=== PATIENT | male | born 1960 | race Caucasian/White ===

== ENCOUNTER 2019-07-25 16:30 | Outpatient (RCR) | payer BC, SELFPAY ==
--- NOTE | 2019-06-20 14:20 | PT.OIE ---
Current Diagnoses Pain in left shoulder (06/20/19) Cervicalgia (06/20/19) Strain of unspecified muscles, fascia and tendons at forearm level, unspecified arm, initial encounter (06/20/19) Past Medical History (Last Updated 06/01/19 @ 15:19 by Huber Agrawal DO) Cervical somatic dysfunction (Acute) Chronic left shoulder pain (Acute) Colon polyp (Acute ~2018) Hearing loss (Acute ~1989) Kidney stones (Acute ~2012) Migraine (Acute ~1998) Segmental and somatic dysfunction of abdomen and other regions (Acute) Shoulder pain (Acute ~1999) Tension headache (Acute) Upper extremity somatic dysfunction (Acute) Past Surgical History (Last Updated 02/28/19 @ 13:59 by Lizbeth Caputo CMA) Thumb fracture (Acute ~1980) Visit Care Team Role Provider Type Huber Agrawal DO Family Provider Physician Primary Care Provider Specialty: Family Practice Address: [address] [place] [address] Email: Rachel Garcia MD Attending Provider Physician Specialty: Internal Medicine Address: [address] [place] [address] Email: Physical Therapy Initial Evaluation PT-OP-A Visit Information Start: 06/20/19 12:46 Freq: Status: Active Protocol: Document 06/20/19 13:00 (Rec: 06/20/19 14:20 [email or web address]) Out-Patient Physical Therapy Visit Information Visit Information Visit Type Initial Evaluation Visit Start Time 13:00 Visit Stop Time 13:40 Total Visit Minutes 40 Visit Number 1 Evaluation Information Evaluation Date 06/20/19 PT-OP-B Current Condition Start: 06/20/19 12:46 Freq: Status: Active Protocol: Document 06/20/19 13:00 HH (Rec: 06/20/19 14:20 [email or web address]) Current Condition History of Current Condition Onset Date 10 years ago Current Complaints Chronic L neck pain, L shoulder pain and tension headache on L side History of Current Condition Pt is a 58 yo male with primary c/o chronic L neck pain, L shoulder pain and tension headache on L side for 10 years. He describes the neck pain as a spasm that starts in the trapezius and goes up, the pain ragnes nothing to 4-6/10. His tension headache starts from L suboccipital area up to his back of L eye. Pt has had CT scan with -ve findings except trapezius strain. His symptoms tend to get worse over work/ stress and keeping his head at one position (eg. staring at his computer on his L side for long period of work). His pain also significantly affects his sleep which wakes him >3times from a 8-9 hrs sleep. He stated his symptoms tend to better with ex such as chest fly from the gym. Receiving massage from his tends to relieve his symptoms temporarily but doesnt last. Pt was prescribed with Barclofen (once a day before sleep) since last summer 2018 and it has been helpful to improve his sleep quality. Pt never had Pt before to address this problem . 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 Prior Treatments and Tests CT scan with -ve findings except trapezius strain Treatment Goals Patient/Caregiver Goals 1. To be pain free of his L shoulder and neck for daily activities 2. to be able to sleep full 8 hrs without barclofen Prior Functional Status Baseline Function- ADL's Independent Baseline Function- Mobility Independent Current Functional Impairments (Reported) Functional Limitations- Work/School Increased neck and shoulder discomfort during work. ( unabel to tolerate prolonged sitting and stare at his screen on L side) PT-OP-C Subjective Start: 06/20/19 12:46 Freq: Status: Active Protocol: Document 06/20/19 13:00 (Rec: 06/20/19 14:20 [email or web address]) OP-PT Subjective Patient Comments Patient Comments Its been 10 years and i really need to fix it Patient Questionnaires Quick Dash- Upper Extremity Quick Dash UE Score 27.27 Quick Dash UE Impairment 20 to 39% Impaired (Score 20- 39) OP-PT Pain Assessment Location L trap/ levator Intensity 4 Scale Used Numeric (1 - 10) Description Aching,Dull,Pressure Frequency Frequent Pain Aggravating Factors Position,Exercise Pain Alleviating Factors Exercise Left Neck Intensity 4 Scale Used Numeric (1 - 10) Description Aching,Dull,Pressure Frequency Frequent Pain Aggravating Factors Position,Sitting Pain Alleviating Factors Exercise PT-OP-E Functional Tests Start: 06/20/19 12:46 Freq: Status: Active Protocol: Document 06/20/19 13:00 (Rec: 06/20/19 14:20 [email or web address]) Functional Tests Apley's Scratch Test Action 2- Left T2 Action 2- Right T4 Action 3- Left T8 Action 3- Right T8 PT-OP-F Manual Assessment Start: 06/20/19 12:46 Freq: Status: Active Protocol: Document 06/20/19 13:00 (Rec: 06/20/19 14:20 [email or web address]) Manual Assessments Soft Tissue Assessment Soft Tissue Mobility Assessment Significant tenderness to pressure at L infraspinatus, levator scap, L trap Joint Mobility Assessment Joint Mobility Assessment Hypomobility from T1-T6 with significant pain to PA pressure Pressure at T1-T4 produced radiating pain L trap PT-OP-J Posture/Palpation/Skin Start: 06/20/19 12:46 Freq: Status: Active Protocol: Document 06/20/19 13:00 (Rec: 06/20/19 14:20 [email or web address]) Posture Evaluation Position Standing Head/C-Spine Posture Forward Head T-Spine Posture Increased Kyphosis Shoulder Posture (L) Rounded,(R) Rounded PT-OP-K Range of Motion Start: 06/20/19 12:46 Freq: Status: Active Protocol: Document 06/20/19 13:00 (Rec: 06/20/19 14:20 [email or web address]) Cervical Spine Range of Motion Cervical Spine Active Degrees Testing Position Sitting Flexion 55 Extension 45 Rotation Left 55 Rotation Right 50 Lateral Flexion Left 35 Lateral Flexion Right 55 ROM Limitations Soft Tissue Tightness,Pain Comments pulling pain with R SB with OP pain with end range ext with OP Shoulder Goniometric Range of Motion Shoulder Right Active Shoulder ROM WFL Yes Testing Position Standing Left Active Shoulder ROM WFL Yes Testing Position Standing Shoulder ROM Limitations Shoulder ROM Limitations Pain Comments Discomfort noted at anterior aspect of L GH during end range L ER PT-OP-L Special Tests Start: 06/20/19 12:46 Freq: Status: Active Protocol: Document 06/20/19 13:00 (Rec: 06/20/19 14:20 [email or web address]) Special Tests Cervical Spine Special Tests facet joint test Test Results +ve on L Comments pain with ext/ ext+ L rot Spurling's Test Test Results +ve Comments radiating pain to L trap Foraminal Compression Test Results -ve Shoulder Special Tests Belly Press Test Results -ve Mercado Aurelio Impingement Test Results -ve Neer Impingement Test Results -ve AC Joint Compression Test Results -ve Empty Can Test Results -ve PT-OP-M Strength Start: 06/20/19 12:46 Freq: Status: Active Protocol: Document 06/20/19 13:00 (Rec: 06/20/19 14:20 [email or web address]) Shoulder Strength Shoulder Manual Muscle Testing Right Flexion 4+ Good+ Extension 4+ Good+ Abduction (C5) 4+ Good+ Adduction 4+ Good+ External Rotation 4+ Good+ Internal Rotation 4+ Good+ Left Flexion 4+ Good+ Extension 4+ Good+ Abduction (C5) 4+ Good+ Adduction 4+ Good+ External Rotation 4 Good Internal Rotation 4 Good PT-OP-Q Treatments Start: 06/20/19 12:46 Freq: Status: Active Protocol: Document 06/20/19 13:00 (Rec: 06/20/19 14:20 [email or web address]) Self-Care/Home Management Treatment Education Patient Education Body Mechanics,Joint Protection,Pain Management, Posture Other Education explained improving T-spine extension mobility to reduce joint stress at C/S Movement education to improve extension ability of C/s and T /S PT-OP-T Assessment and Plan Start: 06/20/19 12:46 Freq: Status: Active Protocol: Document 06/20/19 13:00 (Rec: 06/20/19 14:20 [email or web address]) Physical Therapy Assessment Rehab Potential Rehabilitation Potential Excellent Evaluation Complexity Number of Personal Factors/Comorbidities 1-2 Number of Body Systems Impaired 1-2 Clinical Presentation at Evaluation Stable Impairments Impairments Functional Activities, Functional Mobility,Pain, Posture,ROM,Sensation,Soft Tissue Mobility,Strength Goals pain Impairment Pt has pain during cervical ext and ext with L rot Fpc Goal (LTG) Pt will be pain for cervical closed pack position so pt could look overhead without discomfort. 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 LTG Duration 8 weeks Sleep Impairment pt unable to maintain 8 hrs sleep without barclofen d/t pain Short Term Goal (STG) Pt will be able to sleep >5 hours without disruption by pain and taking barclofen. STG Duration 4 weeks Steward/Stewardess Tourist Class Goal (LTG) Pt will be able to sleep >8 hours without disruption by pain and taking barclofen. LTG Duration 8 weeks Quick dash Impairment pt scores 27.27 on quick dash Short Term Goal (STG) Pt will score <20 (1-19 % impairment) on quick dash to improve his quality of life STG Duration 4 weeks Fpc Goal (LTG) Pt will score <10 (1-19 % impairment) on quick dash to improve his quality of life so he could work a 8 hr day without discomfort. LTG Duration 8 weeks Assessment Summary Assessment Pt is a 58 yo male with primary c/o chronic L neck pain, L shoulder pain and tension headache on L side for 10 years. Upon assessment, pt 's L neck and shoulder pain reproduced with closed pack position (ext/ ext+L rot) and PA pressure at T1-T4. There;s noticeable angulation during at C6-7 during C/S rotation/ extension which possibly increase nerve root pressure. Significant hypomobility at T1 -T8 also noted. However, there 's not significant strength / ROM loss on L GH and C/S. Pt will benefit from skilled therapy to improve his thoracic rotational and extension mobility, scap strength, stability of scapulas and c/s in order for him to improve his sleep and work performance. Physical Therapy Plan Frequency and Duration Frequency of Treatment 2x/Week Duration of Treatment 8 weeks Plan of Care Start Date 06/20/19 Plan of Care End Date 08/19/19 Therapeutic Interventions Therapeutic Interventions Home Exercise Program,Joint Mobilizations,Manual Therapy, Neuromuscular Re-education, Patient/Caregiver Education, Self-Care/Home Management,Soft Tissue Mobilization,Taping, Therapeutic Activities, Therapeutic Exercises Modalities Cold Pack/Ice Massage,Electric Stimulation,Hot Packs, Infrared Therapy,Iontophoresis ,Traction- Mechanical, Ultrasound Next Visit Focus/Plan Next Note Type Treatment Note Next Visit Plan STM on infraspinatus, levator, trap T/S extension and rotation mobility cervical deep flexors strengthening scap row.
--- NOTE | 2019-06-20 14:20 | PT.OPPOC ---
Physical, Occupational & Speech Therapy At [facility] Current Diagnoses Pain in left shoulder (06/20/19) Cervicalgia (06/20/19) Strain of unspecified muscles, fascia and tendons at forearm level, unspecified arm, initial encounter (06/20/19) Visit Care Team Role Provider Type Huber Agrawal DO Family Provider Physician Primary Care Provider Specialty: Family Practice Address: [address] [place] [address], [id number] Email: Rachel Garcia MD Attending Provider Physician Specialty: Internal Medicine Address: [address] [place] [address], [id number] Email: Plan Of Care PT-OP-T Assessment and Plan Start: 06/20/19 12:46 Freq: Status: Active Protocol: Document 06/20/19 13:00 (Rec: 06/20/19 14:20 [email or web address]) Physical Therapy Assessment Rehab Potential Rehabilitation Potential Excellent Evaluation Complexity Number of Personal Factors/Comorbidities 1-2 Number of Body Systems Impaired 1-2 Clinical Presentation at Evaluation Stable Impairments Impairments Functional Activities, Functional Mobility,Pain, Posture,ROM,Sensation,Soft Tissue Mobility,Strength Goals pain Impairment Pt has pain during cervical ext and ext with L rot Shoe Cleaner Goal (LTG) Pt will be pain for cervical closed pack position so pt could look overhead without discomfort. 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 LTG Duration 8 weeks Sleep Impairment pt unable to maintain 8 hrs sleep without barclofen d/t pain Short Term Goal (STG) Pt will be able to sleep >5 hours without disruption by pain and taking barclofen. STG Duration 4 weeks Fdc Goal (LTG) Pt will be able to sleep >8 hours without disruption by pain and taking barclofen. LTG Duration 8 weeks Quick dash Impairment pt scores 27.27 on quick dash Short Term Goal (STG) Pt will score <20 (1-19 % impairment) on quick dash to improve his quality of life STG Duration 4 weeks Shoe Cleaner Goal (LTG) Pt will score <10 (1-19 % impairment) on quick dash to improve his quality of life so he could work a 8 hr day without discomfort. LTG Duration 8 weeks Assessment Summary Assessment Pt is a 58 yo male with primary c/o chronic L neck pain, L shoulder pain and tension headache on L side for 10 years. Upon assessment, pt 's L neck and shoulder pain reproduced with closed pack position (ext/ ext+L rot) and PA pressure at T1-T4. There;s noticeable angulation during at C6-7 during C/S rotation/ extension which possibly increase nerve root pressure. Significant hypomobility at T1 -T8 also noted. However, there 's not significant strength / ROM loss on L GH and C/S. Pt will benefit from skilled therapy to improve his thoracic rotational and extension mobility, scap strength, stability of scapulas and c/s in order for him to improve his sleep and work performance. Physical Therapy Plan Frequency and Duration Frequency of Treatment 2x/Week Duration of Treatment 8 weeks Plan of Care Start Date 06/20/19 Plan of Care End Date 08/19/19 Therapeutic Interventions Therapeutic Interventions Home Exercise Program,Joint Mobilizations,Manual Therapy, Neuromuscular Re-education, Patient/Caregiver Education, Self-Care/Home Management,Soft Tissue Mobilization,Taping, Therapeutic Activities, Therapeutic Exercises Modalities Cold Pack/Ice Massage,Electric Stimulation,Hot Packs, Infrared Therapy,Iontophoresis ,Traction- Mechanical, Ultrasound Next Visit Focus/Plan Next Note Type Treatment Note Next Visit Plan STM on infraspinatus, levator, trap T/S extension and rotation mobility cervical deep flexors strengthening scap row. Plan of Care Dates Plan of Care Start Date 06/20/19 Plan of Care End Date 08/19/19 Electronically Signed by: Leonardo Wolff, TRINITY 06/20/19 0295 Please Sign and Return: I have reviewed this Plan of Care and certify that the skilled therapy services above are required to meet the patient?s needs. Physician Signature Date Printed Name and Credentials Clinical Instructor Signature Printed Name and Credentials
--- NOTE | 2019-06-23 15:19 | PT.OTN ---
Current Diagnoses Pain in left shoulder (06/23/19) Cervicalgia (06/23/19) Strain of unspecified muscles, fascia and tendons at forearm level, unspecified arm, initial encounter (06/23/19) Physical Therapy Treatment Note PT-OP-A Visit Information Start: 06/20/19 12:46 Freq: Status: Active Protocol: Document 06/20/19 13:00 HH (Rec: 06/20/19 14:20 HH [email or web address]) Out-Patient Physical Therapy Visit Information Visit Information Visit Type Initial Evaluation Visit Start Time 13:00 Visit Stop Time 13:40 Total Visit Minutes 40 Visit Number 1 Evaluation Information Evaluation Date 06/20/19 PT-OP-B Current Condition Start: 06/20/19 12:46 Freq: Status: Active Protocol: Document 06/20/19 13:00 HH (Rec: 06/20/19 14:20 HH [email or web address]) Current Condition History of Current Condition Onset Date 10 years ago Current Complaints Chronic L neck pain, L shoulder pain and tension headache on L side History of Current Condition Pt is a 58 yo male with primary c/o chronic L neck pain, L shoulder pain and tension headache on L side for 10 years. He describes the neck pain as a spasm that starts in the trapezius and goes up, the pain ragnes nothing to 4-6/10. His tension headache starts from L suboccipital area up to his back of L eye. Pt has had CT scan with -ve findings except trapezius strain. His symptoms tend to get worse over work/ stress and keeping his head at one position (eg. staring at his computer on his L side for long period of work). His pain also significantly affects his sleep which wakes him >3times from a 8-9 hrs sleep. He stated his symptoms tend to better with ex such as chest fly from the gym. Receiving massage from his tends to relieve his symptoms temporarily but doesnt last. Pt was prescribed with Barclofen (once a day before sleep) since last summer 2018 and it has been helpful to improve his sleep quality. Pt never had Pt before to address this problem . 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 Prior Treatments and Tests CT scan with -ve findings except trapezius strain Treatment Goals Patient/Caregiver Goals 1. To be pain free of his L shoulder and neck for daily activities 2. to be able to sleep full 8 hrs without barclofen Prior Functional Status Baseline Function- ADL's Independent Baseline Function- Mobility Independent Current Functional Impairments (Reported) Functional Limitations- Work/School Increased neck and shoulder discomfort during work. ( unabel to tolerate prolonged sitting and stare at his screen on L side) PT-OP-C Subjective Start: 06/20/19 12:46 Freq: Status: Active Protocol: Document 06/20/19 13:00 HH (Rec: 06/20/19 14:20 [email or web address]) OP-PT Subjective Patient Comments Patient Comments Its been 10 years and i really need to fix it Patient Questionnaires Quick Dash- Upper Extremity Quick Dash UE Score 27.27 Quick Dash UE Impairment 20 to 39% Impaired (Score 20- 39) OP-PT Pain Assessment Location L trap/ levator Intensity 4 Scale Used Numeric (1 - 10) Description Aching,Dull,Pressure Frequency Frequent Pain Aggravating Factors Position,Exercise Pain Alleviating Factors Exercise Left Neck Intensity 4 Scale Used Numeric (1 - 10) Description Aching,Dull,Pressure Frequency Frequent Pain Aggravating Factors Position,Sitting Pain Alleviating Factors Exercise PT-OP-E Functional Tests Start: 06/20/19 12:46 Freq: Status: Active Protocol: Document 06/20/19 13:00 HH (Rec: 06/20/19 14:20 [email or web address]) Functional Tests Apley's Scratch Test Action 2- Left T2 Action 2- Right T4 Action 3- Left T8 Action 3- Right T8 PT-OP-F Manual Assessment Start: 06/20/19 12:46 Freq: Status: Active Protocol: Document 06/20/19 13:00 HH (Rec: 06/20/19 14:20 [email or web address]) Manual Assessments Soft Tissue Assessment Soft Tissue Mobility Assessment Significant tenderness to pressure at L infraspinatus, levator scap, L trap Joint Mobility Assessment Joint Mobility Assessment Hypomobility from T1-T6 with significant pain to PA pressure Pressure at T1-T4 produced radiating pain L trap PT-OP-J Posture/Palpation/Skin Start: 06/20/19 12:46 Freq: Status: Active Protocol: Document 06/20/19 13:00 HH (Rec: 06/20/19 14:20 [email or web address]) Posture Evaluation Position Standing Head/C-Spine Posture Forward Head T-Spine Posture Increased Kyphosis Shoulder Posture (L) Rounded,(R) Rounded PT-OP-K Range of Motion Start: 06/20/19 12:46 Freq: Status: Active Protocol: Document 06/20/19 13:00 (Rec: 06/20/19 14:20 [email or web address]) Cervical Spine Range of Motion Cervical Spine Active Degrees Testing Position Sitting Flexion 55 Extension 45 Rotation Left 55 Rotation Right 50 Lateral Flexion Left 35 Lateral Flexion Right 55 ROM Limitations Soft Tissue Tightness,Pain Comments pulling pain with R SB with OP pain with end range ext with OP Shoulder Goniometric Range of Motion Shoulder Right Active Shoulder ROM WFL Yes Testing Position Standing Left Active Shoulder ROM WFL Yes Testing Position Standing Shoulder ROM Limitations Shoulder ROM Limitations Pain Comments Discomfort noted at anterior aspect of L GH during end range L ER PT-OP-L Special Tests Start: 06/20/19 12:46 Freq: Status: Active Protocol: Document 06/20/19 13:00 (Rec: 06/20/19 14:20 [email or web address]) Special Tests Cervical Spine Special Tests facet joint test Test Results +ve on L Comments pain with ext/ ext+ L rot Spurling's Test Test Results +ve Comments radiating pain to L trap Foraminal Compression Test Results -ve Shoulder Special Tests Belly Press Test Results -ve Mercado Aurelio Impingement Test Results -ve Neer Impingement Test Results -ve AC Joint Compression Test Results -ve Empty Can Test Results -ve PT-OP-M Strength Start: 06/20/19 12:46 Freq: Status: Active Protocol: Document 06/20/19 13:00 (Rec: 06/20/19 14:20 [email or web address]) Shoulder Strength Shoulder Manual Muscle Testing Right Flexion 4+ Good+ Extension 4+ Good+ Abduction (C5) 4+ Good+ Adduction 4+ Good+ External Rotation 4+ Good+ Internal Rotation 4+ Good+ Left Flexion 4+ Good+ Extension 4+ Good+ Abduction (C5) 4+ Good+ Adduction 4+ Good+ External Rotation 4 Good Internal Rotation 4 Good PT-OP-Q Treatments Start: 06/20/19 12:46 Freq: Status: Active Protocol: Document 06/20/19 13:00 (Rec: 06/20/19 14:20 [email or web address]) Self-Care/Home Management Treatment Education Patient Education Body Mechanics,Joint Protection,Pain Management, Posture Other Education explained improving T-spine extension mobility to reduce joint stress at C/S Movement education to improve extension ability of C/s and T /S PT-OP-T Assessment and Plan Start: 06/20/19 12:46 Freq: Status: Active Protocol: Document 06/20/19 13:00 (Rec: 06/20/19 14:20 [email or web address]) Physical Therapy Assessment Rehab Potential Rehabilitation Potential Excellent Evaluation Complexity Number of Personal Factors/Comorbidities 1-2 Number of Body Systems Impaired 1-2 Clinical Presentation at Evaluation Stable Impairments Impairments Functional Activities, Functional Mobility,Pain, Posture,ROM,Sensation,Soft Tissue Mobility,Strength Goals pain Impairment Pt has pain during cervical ext and ext with L rot Debridging Machine Operator Goal (LTG) Pt will be pain for cervical closed pack position so pt could look overhead without discomfort. LTG Duration 8 weeks ROM Impairment Pt has limited cervical ROM Short Term Goal (STG) Pt will improve his cervical AROM by 10 degrees overall STG Duration 4 weeks Debridging Machine Operator Goal (LTG) Pt will improve his cervical AROM by 15 degrees overall so pt could look at his screen on the side / checking cars without any trunk compensation . LTG Duration 8 weeks Sleep Impairment pt unable to maintain 8 hrs sleep without barclofen d/t pain Short Term Goal (STG) Pt will be able to sleep >5 hours without disruption by pain and taking barclofen. STG Duration 4 weeks Snf Goal (LTG) Pt will be able to sleep >8 hours without disruption by pain and taking barclofen. LTG Duration 8 weeks Quick dash Impairment pt scores 27.27 on quick dash Short Term Goal (STG) Pt will score <20 (1-19 % impairment) on quick dash to improve his quality of life STG Duration 4 weeks Debridging Machine Operator Goal (LTG) Pt will score <10 (1-19 % impairment) on quick dash to improve his quality of life so he could work a 8 hr day without discomfort. LTG Duration 8 weeks Assessment Summary Assessment Pt is a 58 yo male with primary c/o chronic L neck pain, L shoulder pain and tension headache on L side for 10 years. Upon assessment, pt 's L neck and shoulder pain reproduced with closed pack position (ext/ ext+L rot) and PA pressure at T1-T4. There;s noticeable angulation during at C6-7 during C/S rotation/ extension which possibly increase nerve root pressure. Significant hypomobility at T1 -T8 also noted. However, there 's not significant strength / ROM loss on L GH and C/S. Pt will benefit from skilled therapy to improve his thoracic rotational and extension mobility, scap strength, stability of scapulas and c/s in order for him to improve his sleep and work performance. Physical Therapy Plan Frequency and Duration Frequency of Treatment 2x/Week Duration of Treatment 8 weeks Plan of Care Start Date 06/20/19 Plan of Care End Date 08/19/19 Therapeutic Interventions Therapeutic Interventions Home Exercise Program,Joint Mobilizations,Manual Therapy, Neuromuscular Re-education, Patient/Caregiver Education, Self-Care/Home Management,Soft Tissue Mobilization,Taping, Therapeutic Activities, Therapeutic Exercises Modalities Cold Pack/Ice Massage,Electric Stimulation,Hot Packs, Infrared Therapy,Iontophoresis ,Traction- Mechanical, Ultrasound Next Visit Focus/Plan Next Note Type Treatment Note Next Visit Plan STM on infraspinatus, levator, trap T/S extension and rotation mobility cervical deep flexors strengthening scap row.
--- NOTE | 2019-06-23 16:12 | PT.OTN ---
Current Diagnoses Pain in left shoulder (06/23/19) Cervicalgia (06/23/19) Strain of unspecified muscles, fascia and tendons at forearm level, unspecified arm, initial encounter (06/23/19) Physical Therapy Treatment Note PT-OP-A Visit Information Start: 06/20/19 12:46 Freq: Status: Active Protocol: Document 06/23/19 14:34 HH (Rec: 06/23/19 16:12 [email or web address]) Out-Patient Physical Therapy Visit Information Visit Information Visit Type Treatment Note Visit Start Time 14:34 Visit Stop Time 15:15 Total Visit Minutes 41 Visit Number 2 Number of FINISHING SUPERVISOR Visits 0 PT-OP-B Current Condition Start: 06/20/19 12:46 Freq: Status: Active Protocol: Document 06/20/19 13:00 HH (Rec: 06/20/19 14:20 [email or web address]) Current Condition History of Current Condition Onset Date 10 years ago Current Complaints Chronic L neck pain, L shoulder pain and tension headache on L side History of Current Condition Pt is a 58 yo male with primary c/o chronic L neck pain, L shoulder pain and tension headache on L side for 10 years. He describes the neck pain as a spasm that starts in the trapezius and goes up, the pain ragnes nothing to 4-6/10. His tension headache starts from L suboccipital area up to his back of L eye. Pt has had CT scan with -ve findings except trapezius strain. His symptoms tend to get worse over work/ stress and keeping his head at one position (eg. staring at his computer on his L side for long period of work). His pain also significantly affects his sleep which wakes him >3times from a 8-9 hrs sleep. He stated his symptoms tend to better with ex such as chest fly from the gym. Receiving massage from his tends to relieve his symptoms temporarily but doesnt last. Pt was prescribed with Barclofen (once a day before sleep) since last summer 2018 and it has been helpful to improve his sleep quality. Pt never had Pt before to address this problem . 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 Prior Treatments and Tests CT scan with -ve findings except trapezius strain Treatment Goals Patient/Caregiver Goals 1. To be pain free of his L shoulder and neck for daily activities 2. to be able to sleep full 8 hrs without barclofen Prior Functional Status Baseline Function- ADL's Independent Baseline Function- Mobility Independent Current Functional Impairments (Reported) Functional Limitations- Work/School Increased neck and shoulder discomfort during work. ( unabel to tolerate prolonged sitting and stare at his screen on L side) PT-OP-C Subjective Start: 06/20/19 12:46 Freq: Status: Active Protocol: Document 06/23/19 14:34 HH (Rec: 06/23/19 16:12 [email or web address]) OP-PT Subjective Patient Comments Patient Comments Im excited to start of treatment plan. PT-OP-E Functional Tests Start: 06/20/19 12:46 Freq: Status: Active Protocol: Document 06/20/19 13:00 HH (Rec: 06/20/19 14:20 [email or web address]) Functional Tests Apley's Scratch Test Action 2- Left T2 Action 2- Right T4 Action 3- Left T8 Action 3- Right T8 PT-OP-F Manual Assessment Start: 06/20/19 12:46 Freq: Status: Active Protocol: Document 06/20/19 13:00 HH (Rec: 06/20/19 14:20 [email or web address]) Manual Assessments Soft Tissue Assessment Soft Tissue Mobility Assessment Significant tenderness to pressure at L infraspinatus, levator scap, L trap Joint Mobility Assessment Joint Mobility Assessment Hypomobility from T1-T6 with significant pain to PA pressure Pressure at T1-T4 produced radiating pain L trap PT-OP-J Posture/Palpation/Skin Start: 06/20/19 12:46 Freq: Status: Active Protocol: Document 06/20/19 13:00 HH (Rec: 06/20/19 14:20 [email or web address]) Posture Evaluation Position Standing Head/C-Spine Posture Forward Head T-Spine Posture Increased Kyphosis Shoulder Posture (L) Rounded,(R) Rounded PT-OP-K Range of Motion Start: 06/20/19 12:46 Freq: Status: Active Protocol: Document 06/20/19 13:00 HH (Rec: 06/20/19 14:20 [email or web address]) Cervical Spine Range of Motion Cervical Spine Active Degrees Testing Position Sitting Flexion 55 Extension 45 Rotation Left 55 Rotation Right 50 Lateral Flexion Left 35 Lateral Flexion Right 55 ROM Limitations Soft Tissue Tightness,Pain Comments pulling pain with R SB with OP pain with end range ext with OP Shoulder Goniometric Range of Motion Shoulder Right Active Shoulder ROM WFL Yes Testing Position Standing Left Active Shoulder ROM WFL Yes Testing Position Standing Shoulder ROM Limitations Shoulder ROM Limitations Pain Comments Discomfort noted at anterior aspect of L GH during end range L ER PT-OP-L Special Tests Start: 06/20/19 12:46 Freq: Status: Active Protocol: Document 06/20/19 13:00 (Rec: 06/20/19 14:20 [email or web address]) Special Tests Cervical Spine Special Tests facet joint test Test Results +ve on L Comments pain with ext/ ext+ L rot Spurling's Test Test Results +ve Comments radiating pain to L trap Foraminal Compression Test Results -ve Shoulder Special Tests Belly Press Test Results -ve Mercado Aurelio Impingement Test Results -ve Neer Impingement Test Results -ve AC Joint Compression Test Results -ve Empty Can Test Results -ve PT-OP-M Strength Start: 06/20/19 12:46 Freq: Status: Active Protocol: Document 06/20/19 13:00 (Rec: 06/20/19 14:20 [email or web address]) Shoulder Strength Shoulder Manual Muscle Testing Right Flexion 4+ Good+ Extension 4+ Good+ Abduction (C5) 4+ Good+ Adduction 4+ Good+ External Rotation 4+ Good+ Internal Rotation 4+ Good+ Left Flexion 4+ Good+ Extension 4+ Good+ Abduction (C5) 4+ Good+ Adduction 4+ Good+ External Rotation 4 Good Internal Rotation 4 Good PT-OP-Q Treatments Start: 06/20/19 12:46 Freq: Status: Active Protocol: Document 06/23/19 14:34 (Rec: 06/23/19 16:12 [id number]) Therapeutic Exercises Prone Exercises cat camel Prone Exercise Name with c/s ext and flexion Side bilateral Reps/Minutes 5 mins Sidelying Exercises open book Sidelying Exercise Name with lumbar lock Side bilateral Reps/Minutes 5 mins Comments with c/s rotation Standing Exercises prayer stretch Side bilateral Reps/Minutes 7 mins Comments on grab bar Manual Therapy Treatment Soft Tissue Mobilization trap , levator Mobilization Type Sustained Pressure,Trigger Point Release Intensity/Depth Deep Body Position Sitting infraspinatus Mobilization Type Sustained Pressure,Trigger Point Release Intensity/Depth Deep Body Position Prone suboccipital Mobilization Type Strumming,Sustained Pressure Intensity/Depth Deep Body Position Sitting Joint Mobilizations T1-T6 Grade II Body Position Prone Reps/Duration 6 mins c/s distraction Grade III Body Position Supine Reps/Duration 10 secs holdx 5 Manual Techniques MET Type C/S L rotation, ext and L SB Body Position Sitting Reps/Duration 10 sec hold x 3 each direction PT-OP-T Assessment and Plan Start: 06/20/19 12:46 Freq: Status: Active Protocol: Document 06/23/19 14:34 HH (Rec: 06/23/19 16:12 [email or web address]) Physical Therapy Assessment Goals pain Impairment Pt has pain during cervical ext and ext with L rot Custodial Goal (LTG) Pt will be pain for cervical closed pack position so pt could look overhead without discomfort. LTG Duration 8 weeks ROM Impairment Pt has limited cervical ROM Short Term Goal (STG) Pt will improve his cervical AROM by 10 degrees overall STG Duration 4 weeks Quality Compliance Coordinator Goal (LTG) Pt will improve his cervical AROM by 15 degrees overall so pt could look at his screen on the side / checking cars without any trunk compensation . LTG Duration 8 weeks Sleep Impairment pt unable to maintain 8 hrs sleep without barclofen d/t pain Short Term Goal (STG) Pt will be able to sleep >5 hours without disruption by pain and taking barclofen. STG Duration 4 weeks Quality Compliance Coordinator Goal (LTG) Pt will be able to sleep >8 hours without disruption by pain and taking barclofen. LTG Duration 8 weeks Quick dash Impairment pt scores 27.27 on quick dash Short Term Goal (STG) Pt will score <20 (1-19 % impairment) on quick dash to improve his quality of life STG Duration 4 weeks Custodial Goal (LTG) Pt will score <10 (1-19 % impairment) on quick dash to improve his quality of life so he could work a 8 hr day without discomfort. LTG Duration 8 weeks Assessment Summary Assessment Focused on manual therapy today. Pt reports relief of symptoms and improved c/s mobility especially extension without discomfort. Added open book, prayer stretch and cat camel to improve upper T/S mobility. Physical Therapy Plan Next Visit Focus/Plan Next Note Type Treatment Note Next Visit Plan check post tx tolerance STM on infraspinatus, levator, trap T/S extension and rotation mobility cervical deep flexors strengthening scap row.
--- NOTE | 2019-06-30 16:02 | PT.OTN ---
Current Diagnoses Pain in left shoulder (06/30/19) Cervicalgia (06/30/19) Strain of unspecified muscles, fascia and tendons at forearm level, unspecified arm, initial encounter (06/30/19) Physical Therapy Treatment Note PT-OP-A Visit Information Start: 06/20/19 12:46 Freq: Status: Active Protocol: Document 06/30/19 15:17 HH (Rec: 06/30/19 16:02 [id number]) Out-Patient Physical Therapy Visit Information Visit Information Visit Type Treatment Note Visit Start Time 15:17 Visit Stop Time 16:00 Total Visit Minutes 43 Visit Number 3 Number of SWEATBAND DRUMMER Visits 0 PT-OP-B Current Condition Start: 06/20/19 12:46 Freq: Status: Active Protocol: Document 06/20/19 13:00 HH (Rec: 06/20/19 14:20 [email or web address]) Current Condition History of Current Condition Onset Date 10 years ago Current Complaints Chronic L neck pain, L shoulder pain and tension headache on L side History of Current Condition Pt is a 58 yo male with primary c/o chronic L neck pain, L shoulder pain and tension headache on L side for 10 years. He describes the neck pain as a spasm that starts in the trapezius and goes up, the pain ragnes nothing to 4-6/10. His tension headache starts from L suboccipital area up to his back of L eye. Pt has had CT scan with -ve findings except trapezius strain. His symptoms tend to get worse over work/ stress and keeping his head at one position (eg. staring at his computer on his L side for long period of work). His pain also significantly affects his sleep which wakes him >3times from a 8-9 hrs sleep. He stated his symptoms tend to better with ex such as chest fly from the gym. Receiving massage from his tends to relieve his symptoms temporarily but doesnt last. Pt was prescribed with Barclofen (once a day before sleep) since last summer 2018 and it has been helpful to improve his sleep quality. Pt never had Pt before to address this problem . 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 Prior Treatments and Tests CT scan with -ve findings except trapezius strain Treatment Goals Patient/Caregiver Goals 1. To be pain free of his L shoulder and neck for daily activities 2. to be able to sleep full 8 hrs without barclofen Prior Functional Status Baseline Function- ADL's Independent Baseline Function- Mobility Independent Current Functional Impairments (Reported) Functional Limitations- Work/School Increased neck and shoulder discomfort during work. ( unabel to tolerate prolonged sitting and stare at his screen on L side) PT-OP-C Subjective Start: 06/20/19 12:46 Freq: Status: Active Protocol: Document 06/30/19 15:17 HH (Rec: 06/30/19 16:02 HH [id number]) OP-PT Subjective Patient Comments Patient Comments Jesusita doing all my ex everyday and i was doing pretty good and started to feel the neck moving the right way. But I was feeling stiff yesterday evening but i feel fine this morning. My sleep has been doing pretty good but i still take my barclofen. PT-OP-E Functional Tests Start: 06/20/19 12:46 Freq: Status: Active Protocol: Document 06/20/19 13:00 HH (Rec: 06/20/19 14:20 HH [email or web address]) Functional Tests Apley's Scratch Test Action 2- Left T2 Action 2- Right T4 Action 3- Left T8 Action 3- Right T8 PT-OP-F Manual Assessment Start: 06/20/19 12:46 Freq: Status: Active Protocol: Document 06/20/19 13:00 HH (Rec: 06/20/19 14:20 HH [email or web address]) Manual Assessments Soft Tissue Assessment Soft Tissue Mobility Assessment Significant tenderness to pressure at L infraspinatus, levator scap, L trap Joint Mobility Assessment Joint Mobility Assessment Hypomobility from T1-T6 with significant pain to PA pressure Pressure at T1-T4 produced radiating pain L trap PT-OP-J Posture/Palpation/Skin Start: 06/20/19 12:46 Freq: Status: Active Protocol: Document 06/20/19 13:00 HH (Rec: 06/20/19 14:20 HH [email or web address]) Posture Evaluation Position Standing Head/C-Spine Posture Forward Head T-Spine Posture Increased Kyphosis Shoulder Posture (L) Rounded,(R) Rounded PT-OP-K Range of Motion Start: 06/20/19 12:46 Freq: Status: Active Protocol: Document 06/20/19 13:00 HH (Rec: 06/20/19 14:20 HH [email or web address]) Cervical Spine Range of Motion Cervical Spine Active Degrees Testing Position Sitting Flexion 55 Extension 45 Rotation Left 55 Rotation Right 50 Lateral Flexion Left 35 Lateral Flexion Right 55 ROM Limitations Soft Tissue Tightness,Pain Comments pulling pain with R SB with OP pain with end range ext with OP Shoulder Goniometric Range of Motion Shoulder Right Active Shoulder ROM WFL Yes Testing Position Standing Left Active Shoulder ROM WFL Yes Testing Position Standing Shoulder ROM Limitations Shoulder ROM Limitations Pain Comments Discomfort noted at anterior aspect of L GH during end range L ER PT-OP-L Special Tests Start: 06/20/19 12:46 Freq: Status: Active Protocol: Document 06/20/19 13:00 (Rec: 06/20/19 14:20 [email or web address]) Special Tests Cervical Spine Special Tests facet joint test Test Results +ve on L Comments pain with ext/ ext+ L rot Spurling's Test Test Results +ve Comments radiating pain to L trap Foraminal Compression Test Results -ve Shoulder Special Tests Belly Press Test Results -ve Mercado Aurelio Impingement Test Results -ve Neer Impingement Test Results -ve AC Joint Compression Test Results -ve Empty Can Test Results -ve PT-OP-M Strength Start: 06/20/19 12:46 Freq: Status: Active Protocol: Document 06/20/19 13:00 (Rec: 06/20/19 14:20 [email or web address]) Shoulder Strength Shoulder Manual Muscle Testing Right Flexion 4+ Good+ Extension 4+ Good+ Abduction (C5) 4+ Good+ Adduction 4+ Good+ External Rotation 4+ Good+ Internal Rotation 4+ Good+ Left Flexion 4+ Good+ Extension 4+ Good+ Abduction (C5) 4+ Good+ Adduction 4+ Good+ External Rotation 4 Good Internal Rotation 4 Good PT-OP-Q Treatments Start: 06/20/19 12:46 Freq: Status: Active Protocol: Document 06/30/19 15:17 (Rec: 06/30/19 16:02 [id number]) Cardio Equipment Upper Body Ergometer (UBE) Duration (Minutes) 5 RPM 80 Other 1min alternate direction. Therapeutic Exercises Supine Exercises t/s ext with foam roller Side bilateral Equipment Used foam roller Reps/Minutes 4 mins Prone Exercises prone push up[ Prone Exercise Name elbows/ hands Side bilateral Equipment Used 8 x2 Comments cues on C/S and T/S extension cat camel Prone Exercise Name with c/s ext and flexion Side bilateral Reps/Minutes 10 x2 Sidelying Exercises open book Sidelying Exercise Name with lumbar lock Side bilateral Reps/Minutes 5 x2 Comments with c/s rotation Standing Exercises prayer stretch Side bilateral Reps/Minutes 5 x2 Comments on grab bar Manual Therapy Treatment Soft Tissue Mobilization trap , levator Mobilization Type Sustained Pressure,Trigger Point Release Intensity/Depth Deep Body Position Sitting infraspinatus Mobilization Type Sustained Pressure,Trigger Point Release Intensity/Depth Deep Body Position Prone suboccipital Mobilization Type Strumming,Sustained Pressure Intensity/Depth Deep Body Position Sitting Joint Mobilizations T1-T6 Grade II Body Position Prone Reps/Duration 6 mins c/s distraction Grade III Body Position Supine Reps/Duration 10 secs holdx 5 PT-OP-T Assessment and Plan Start: 06/20/19 12:46 Freq: Status: Active Protocol: Document 06/30/19 15:17 (Rec: 06/30/19 16:02 [id number]) Physical Therapy Assessment Goals pain Impairment Pt has pain during cervical ext and ext with L rot Care Home Goal (LTG) Pt will be pain for cervical closed pack position so pt could look overhead without discomfort. LTG Duration 8 weeks ROM Impairment Pt has limited cervical ROM Short Term Goal (STG) Pt will improve his cervical AROM by 10 degrees overall STG Duration 4 weeks Care Home Goal (LTG) Pt will improve his cervical AROM by 15 degrees overall so pt could look at his screen on the side / checking cars without any trunk compensation . LTG Duration 8 weeks Sleep Impairment pt unable to maintain 8 hrs sleep without barclofen d/t pain Short Term Goal (STG) Pt will be able to sleep >5 hours without disruption by pain and taking barclofen. STG Duration 4 weeks Care Home Goal (LTG) Pt will be able to sleep >8 hours without disruption by pain and taking barclofen. LTG Duration 8 weeks Quick dash Impairment pt scores 27.27 on quick dash Short Term Goal (STG) Pt will score <20 (1-19 % impairment) on quick dash to improve his quality of life STG Duration 4 weeks Care Home Goal (LTG) Pt will score <10 (1-19 % impairment) on quick dash to improve his quality of life so he could work a 8 hr day without discomfort. LTG Duration 8 weeks Assessment Summary Assessment Pt showed reduced pain during PA mob and overpressure for head rotation/ extension. Pt also has improved body awareness for trunk movements. Added prone push up and foam roller T/S ext
--- NOTE | 2019-07-04 16:01 | PT.OTN ---
Current Diagnoses Pain in left shoulder (07/04/19) Cervicalgia (07/04/19) Strain of unspecified muscles, fascia and tendons at forearm level, unspecified arm, initial encounter (07/04/19) Physical Therapy Treatment Note PT-OP-A Visit Information Start: 06/20/19 12:46 Freq: Status: Active Protocol: Document 07/04/19 15:14 HH (Rec: 07/04/19 16:01 [id number]) Out-Patient Physical Therapy Visit Information Visit Information Visit Type Treatment Note Visit Start Time 15:14 Visit Stop Time 15:59 Total Visit Minutes 45 Visit Number 4 Number of RESEARCH LAB ASSISTANT Visits 0 PT-OP-B Current Condition Start: 06/20/19 12:46 Freq: Status: Active Protocol: Document 06/20/19 13:00 HH (Rec: 06/20/19 14:20 [email or web address]) Current Condition History of Current Condition Onset Date 10 years ago Current Complaints Chronic L neck pain, L shoulder pain and tension headache on L side History of Current Condition Pt is a 58 yo male with primary c/o chronic L neck pain, L shoulder pain and tension headache on L side for 10 years. He describes the neck pain as a spasm that starts in the trapezius and goes up, the pain ragnes nothing to 4-6/10. His tension headache starts from L suboccipital area up to his back of L eye. Pt has had CT scan with -ve findings except trapezius strain. His symptoms tend to get worse over work/ stress and keeping his head at one position (eg. staring at his computer on his L side for long period of work). His pain also significantly affects his sleep which wakes him >3times from a 8-9 hrs sleep. He stated his symptoms tend to better with ex such as chest fly from the gym. Receiving massage from his tends to relieve his symptoms temporarily but doesnt last. Pt was prescribed with Barclofen (once a day before sleep) since last summer 2018 and it has been helpful to improve his sleep quality. Pt never had Pt before to address this problem . 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 Prior Treatments and Tests CT scan with -ve findings except trapezius strain Treatment Goals Patient/Caregiver Goals 1. To be pain free of his L shoulder and neck for daily activities 2. to be able to sleep full 8 hrs without barclofen Prior Functional Status Baseline Function- ADL's Independent Baseline Function- Mobility Independent Current Functional Impairments (Reported) Functional Limitations- Work/School Increased neck and shoulder discomfort during work. ( unabel to tolerate prolonged sitting and stare at his screen on L side) PT-OP-C Subjective Start: 06/20/19 12:46 Freq: Status: Active Protocol: Document 07/04/19 15:14 HH (Rec: 07/04/19 16:01 [id number]) OP-PT Subjective Patient Comments Patient Comments I didnt take Barclofen during the weekend and my sleep was not as bad as i thought. I havent had any bad headaches since i started PT. Patient Reported Progress Improving PT-OP-E Functional Tests Start: 06/20/19 12:46 Freq: Status: Active Protocol: Document 06/20/19 13:00 HH (Rec: 06/20/19 14:20 [email or web address]) Functional Tests Apley's Scratch Test Action 2- Left T2 Action 2- Right T4 Action 3- Left T8 Action 3- Right T8 PT-OP-F Manual Assessment Start: 06/20/19 12:46 Freq: Status: Active Protocol: Document 06/20/19 13:00 HH (Rec: 06/20/19 14:20 HH [email or web address]) Manual Assessments Soft Tissue Assessment Soft Tissue Mobility Assessment Significant tenderness to pressure at L infraspinatus, levator scap, L trap Joint Mobility Assessment Joint Mobility Assessment Hypomobility from T1-T6 with significant pain to PA pressure Pressure at T1-T4 produced radiating pain L trap PT-OP-J Posture/Palpation/Skin Start: 06/20/19 12:46 Freq: Status: Active Protocol: Document 06/20/19 13:00 HH (Rec: 06/20/19 14:20 HH [email or web address]) Posture Evaluation Position Standing Head/C-Spine Posture Forward Head T-Spine Posture Increased Kyphosis Shoulder Posture (L) Rounded,(R) Rounded PT-OP-K Range of Motion Start: 06/20/19 12:46 Freq: Status: Active Protocol: Document 06/20/19 13:00 HH (Rec: 06/20/19 14:20 HH [email or web address]) Cervical Spine Range of Motion Cervical Spine Active Degrees Testing Position Sitting Flexion 55 Extension 45 Rotation Left 55 Rotation Right 50 Lateral Flexion Left 35 Lateral Flexion Right 55 ROM Limitations Soft Tissue Tightness,Pain Comments pulling pain with R SB with OP pain with end range ext with OP Shoulder Goniometric Range of Motion Shoulder Right Active Shoulder ROM WFL Yes Testing Position Standing Left Active Shoulder ROM WFL Yes Testing Position Standing Shoulder ROM Limitations Shoulder ROM Limitations Pain Comments Discomfort noted at anterior aspect of L GH during end range L ER PT-OP-L Special Tests Start: 06/20/19 12:46 Freq: Status: Active Protocol: Document 06/20/19 13:00 (Rec: 06/20/19 14:20 [email or web address]) Special Tests Cervical Spine Special Tests facet joint test Test Results +ve on L Comments pain with ext/ ext+ L rot Spurling's Test Test Results +ve Comments radiating pain to L trap Foraminal Compression Test Results -ve Shoulder Special Tests Belly Press Test Results -ve Jess Aurelio Impingement Test Results -ve Neer Impingement Test Results -ve AC Joint Compression Test Results -ve Empty Can Test Results -ve PT-OP-M Strength Start: 06/20/19 12:46 Freq: Status: Active Protocol: Document 06/20/19 13:00 (Rec: 06/20/19 14:20 [email or web address]) Shoulder Strength Shoulder Manual Muscle Testing Right Flexion 4+ Good+ Extension 4+ Good+ Abduction (C5) 4+ Good+ Adduction 4+ Good+ External Rotation 4+ Good+ Internal Rotation 4+ Good+ Left Flexion 4+ Good+ Extension 4+ Good+ Abduction (C5) 4+ Good+ Adduction 4+ Good+ External Rotation 4 Good Internal Rotation 4 Good PT-OP-Q Treatments Start: 06/20/19 12:46 Freq: Status: Active Protocol: Document 07/04/19 15:14 (Rec: 07/04/19 16:01 [id number]) Cardio Equipment Upper Body Ergometer (UBE) Duration (Minutes) 5 RPM 80 Other 1min alternate direction. Therapeutic Exercises Supine Exercises peanut ball Supine Exercise Name peanut shape with 2 tennis balls Side bilateral Reps/Minutes 2 mins Comments self suboccipital release snow chaitanya Equipment Used foam roller Reps/Minutes 4 mins Comments with chin tuck t/s ext with foam roller Side bilateral Equipment Used foam roller Reps/Minutes 4 mins Prone Exercises unilateral T/S rot Prone Exercise Name L rot only Side left Reps/Minutes 5 x2 Comments pt reports limited mobility and weakness prone push up[ Prone Exercise Name elbows/ hands Side bilateral Equipment Used 8 x2 Comments cues on C/S and T/S extension Sitting Exercises PA mob with c/s ext Sitting Exercise Name SNAG Reps/Minutes towel on lower c/s Comments active c/s ext and rot Manual Therapy Treatment Soft Tissue Mobilization trap , levator Mobilization Type Sustained Pressure,Trigger Point Release Intensity/Depth Deep Body Position Sitting Joint Mobilizations T1-T6 Grade II Body Position Prone Reps/Duration 6 mins c/s distraction Grade III Body Position Supine Reps/Duration 10 secs holdx 5 PT-OP-T Assessment and Plan Start: 06/20/19 12:46 Freq: Status: Active Protocol: Document 07/04/19 15:14 (Rec: 07/04/19 16:01 [id number]) Physical Therapy Assessment Goals pain Impairment Pt has pain during cervical ext and ext with L rot [facility] Goal (LTG) Pt will be pain for cervical closed pack position so pt could look overhead without discomfort. LTG Duration 8 weeks ROM Impairment Pt has limited cervical ROM Short Term Goal (STG) Pt will improve his cervical AROM by 10 degrees overall STG Duration 4 weeks [facility]entiary Goal (LTG) Pt will improve his cervical AROM by 15 degrees overall so pt could look at his screen on the side / checking cars without any trunk compensation . LTG Duration 8 weeks Sleep Impairment pt unable to maintain 8 hrs sleep without barclofen d/t pain Short Term Goal (STG) Pt will be able to sleep >5 hours without disruption by pain and taking barclofen. STG Duration 4 weeks Econometrics Professor Goal (LTG) Pt will be able to sleep >8 hours without disruption by pain and taking barclofen. LTG Duration 8 weeks Quick dash Impairment pt scores 27.27 on quick dash Short Term Goal (STG) Pt will score <20 (1-19 % impairment) on quick dash to improve his quality of life STG Duration 4 weeks [facility] Goal (LTG) Pt will score <10 (1-19 % impairment) on quick dash to improve his quality of life so he could work a 8 hr day without discomfort. LTG Duration 8 weeks Assessment Summary Assessment Pt reports improved headache lately and overall cervical/ tspine mobility. Tx focused on T/S extension and rotational mobility. Added tennis ball release on suboccipital, t/s foam roll, prone unilateral t/ s rotation. Physical Therapy Plan Next Visit Focus/Plan Next Note Type Treatment Note Next Visit Plan check post tx tolerance STM on infraspinatus, levator, trap T/S extension and rotation mobility cervical deep flexors strengthening scap strengthening T,W,Y
--- NOTE | 2019-07-07 15:37 | PT.OTN ---
Current Diagnoses Pain in left shoulder (07/07/19) Cervicalgia (07/07/19) Strain of unspecified muscles, fascia and tendons at forearm level, unspecified arm, initial encounter (07/07/19) Physical Therapy Treatment Note PT-OP-A Visit Information Start: 06/20/19 12:46 Freq: Status: Active Protocol: Document 07/07/19 14:45 HH (Rec: 07/07/19 15:37 HH [id number]) Out-Patient Physical Therapy Visit Information Visit Information Visit Type Treatment Note Visit Start Time 14:45 Visit Stop Time 15:32 Total Visit Minutes 47 Visit Number 5 Number of UNIT OPERATOR Visits 0 PT-OP-B Current Condition Start: 06/20/19 12:46 Freq: Status: Active Protocol: Document 06/20/19 13:00 HH (Rec: 06/20/19 14:20 HH [email or web address]) Current Condition History of Current Condition Onset Date 10 years ago Current Complaints Chronic L neck pain, L shoulder pain and tension headache on L side History of Current Condition Pt is a 58 yo male with primary c/o chronic L neck pain, L shoulder pain and tension headache on L side for 10 years. He describes the neck pain as a spasm that starts in the trapezius and goes up, the pain ragnes nothing to 4-6/10. His tension headache starts from L suboccipital area up to his back of L eye. Pt has had CT scan with -ve findings except trapezius strain. His symptoms tend to get worse over work/ stress and keeping his head at one position (eg. staring at his computer on his L side for long period of work). His pain also significantly affects his sleep which wakes him >3times from a 8-9 hrs sleep. He stated his symptoms tend to better with ex such as chest fly from the gym. Receiving massage from his tends to relieve his symptoms temporarily but doesnt last. Pt was prescribed with Barclofen (once a day before sleep) since last summer 2018 and it has been helpful to improve his sleep quality. Pt never had Pt before to address this problem . 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 Prior Treatments and Tests CT scan with -ve findings except trapezius strain Treatment Goals Patient/Caregiver Goals 1. To be pain free of his L shoulder and neck for daily activities 2. to be able to sleep full 8 hrs without barclofen Prior Functional Status Baseline Function- ADL's Independent Baseline Function- Mobility Independent Current Functional Impairments (Reported) Functional Limitations- Work/School Increased neck and shoulder discomfort during work. ( unabel to tolerate prolonged sitting and stare at his screen on L side) PT-OP-C Subjective Start: 06/20/19 12:46 Freq: Status: Active Protocol: Document 07/07/19 14:45 HH (Rec: 07/07/19 15:37 HH [id number]) OP-PT Subjective Patient Comments Patient Comments Its getting slightly better and i only took 1 baclofen this week but my shoulder discomfort still bothers my sleep that woke me up. I tend to sleep the best on my back. Patient Reported Progress Improving PT-OP-E Functional Tests Start: 06/20/19 12:46 Freq: Status: Active Protocol: Document 06/20/19 13:00 HH (Rec: 06/20/19 14:20 HH [email or web address]) Functional Tests Apley's Scratch Test Action 2- Left T2 Action 2- Right T4 Action 3- Left T8 Action 3- Right T8 PT-OP-F Manual Assessment Start: 06/20/19 12:46 Freq: Status: Active Protocol: Document 06/20/19 13:00 HH (Rec: 06/20/19 14:20 HH [email or web address]) Manual Assessments Soft Tissue Assessment Soft Tissue Mobility Assessment Significant tenderness to pressure at L infraspinatus, levator scap, L trap Joint Mobility Assessment Joint Mobility Assessment Hypomobility from T1-T6 with significant pain to PA pressure Pressure at T1-T4 produced radiating pain L trap PT-OP-J Posture/Palpation/Skin Start: 06/20/19 12:46 Freq: Status: Active Protocol: Document 06/20/19 13:00 HH (Rec: 06/20/19 14:20 HH [email or web address]) Posture Evaluation Position Standing Head/C-Spine Posture Forward Head T-Spine Posture Increased Kyphosis Shoulder Posture (L) Rounded,(R) Rounded PT-OP-K Range of Motion Start: 06/20/19 12:46 Freq: Status: Active Protocol: Document 06/20/19 13:00 HH (Rec: 06/20/19 14:20 HH [email or web address]) Cervical Spine Range of Motion Cervical Spine Active Degrees Testing Position Sitting Flexion 55 Extension 45 Rotation Left 55 Rotation Right 50 Lateral Flexion Left 35 Lateral Flexion Right 55 ROM Limitations Soft Tissue Tightness,Pain Comments pulling pain with R SB with OP pain with end range ext with OP Shoulder Goniometric Range of Motion Shoulder Right Active Shoulder ROM WFL Yes Testing Position Standing Left Active Shoulder ROM WFL Yes Testing Position Standing Shoulder ROM Limitations Shoulder ROM Limitations Pain Comments Discomfort noted at anterior aspect of L GH during end range L ER PT-OP-L Special Tests Start: 06/20/19 12:46 Freq: Status: Active Protocol: Document 06/20/19 13:00 (Rec: 06/20/19 14:20 [email or web address]) Special Tests Cervical Spine Special Tests facet joint test Test Results +ve on L Comments pain with ext/ ext+ L rot Spurling's Test Test Results +ve Comments radiating pain to L trap Foraminal Compression Test Results -ve Shoulder Special Tests Belly Press Test Results -ve Jess Aurelio Impingement Test Results -ve Neer Impingement Test Results -ve AC Joint Compression Test Results -ve Empty Can Test Results -ve PT-OP-M Strength Start: 06/20/19 12:46 Freq: Status: Active Protocol: Document 06/20/19 13:00 (Rec: 06/20/19 14:20 [email or web address]) Shoulder Strength Shoulder Manual Muscle Testing Right Flexion 4+ Good+ Extension 4+ Good+ Abduction (C5) 4+ Good+ Adduction 4+ Good+ External Rotation 4+ Good+ Internal Rotation 4+ Good+ Left Flexion 4+ Good+ Extension 4+ Good+ Abduction (C5) 4+ Good+ Adduction 4+ Good+ External Rotation 4 Good Internal Rotation 4 Good PT-OP-Q Treatments Start: 06/20/19 12:46 Freq: Status: Active Protocol: Document 07/07/19 14:45 (Rec: 07/07/19 15:37 [id number]) Cardio Equipment Upper Body Ergometer (UBE) Duration (Minutes) 5 RPM 80 Other 1min alternate direction. Therapeutic Exercises Supine Exercises t/s ext with foam roller Side bilateral Equipment Used foam roller Reps/Minutes 12 x2 Prone Exercises unilateral T/S rot Prone Exercise Name L rot only Side left Reps/Minutes 5 x2 Comments pt reports limited mobility and weakness prone push up[ Prone Exercise Name elbows/ hands Side bilateral Equipment Used 8 x2 Comments cues on C/S and T/S extension Sitting Exercises levator and trap stretch Side bilateral Comments with UE assist Passive trunk rot Sitting Exercise Name with C/S rotatoin Side bilateral Reps/Minutes 12 x2 Comments PT assistance for end range ROT PA mob with c/s ext Sitting Exercise Name SNAG Reps/Minutes towel on lower c/s Comments active c/s ext and rot Manual Therapy Treatment Soft Tissue Mobilization trap , levator Mobilization Type Sustained Pressure,Trigger Point Release Intensity/Depth Deep Body Position Sitting suboccipital Mobilization Type Strumming,Sustained Pressure Intensity/Depth Deep Body Position Sitting Joint Mobilizations T1-T6 Grade II Body Position Prone Reps/Duration 6 mins c/s distraction Grade III Body Position Supine Reps/Duration 10 secs holdx 5 PT-OP-T Assessment and Plan Start: 06/20/19 12:46 Freq: Status: Active Protocol: Document 07/07/19 14:45 HH (Rec: 07/07/19 15:37 HH [id number]) Physical Therapy Assessment Goals pain Impairment Pt has pain during cervical ext and ext with L rot Councilor Goal (LTG) Pt will be pain for cervical closed pack position so pt could look overhead without discomfort. LTG Duration 8 weeks ROM Impairment Pt has limited cervical ROM Short Term Goal (STG) Pt will improve his cervical AROM by 10 degrees overall STG Duration 4 weeks Councilor Goal (LTG) Pt will improve his cervical AROM by 15 degrees overall so pt could look at his screen on the side / checking cars without any trunk compensation . LTG Duration 8 weeks Sleep Impairment pt unable to maintain 8 hrs sleep without barclofen d/t pain Short Term Goal (STG) Pt will be able to sleep >5 hours without disruption by pain and taking barclofen. STG Duration 4 weeks Assisted Goal (LTG) Pt will be able to sleep >8 hours without disruption by pain and taking barclofen. LTG Duration 8 weeks Quick dash Impairment pt scores 27.27 on quick dash Short Term Goal (STG) Pt will score <20 (1-19 % impairment) on quick dash to improve his quality of life STG Duration 4 weeks Councilor Goal (LTG) Pt will score <10 (1-19 % impairment) on quick dash to improve his quality of life so he could work a 8 hr day without discomfort. LTG Duration 8 weeks Assessment Summary Assessment Pt cont to progress. Less discomfort with overpressure at end range c/s ext and L rot . Added child pose and full prone extension and cervical levator trap stretch for HEP today. Physical Therapy Plan Next Visit Focus/Plan Next Note Type Treatment Note Next Visit Plan Cervical rot and ext at end range T/S extension and rotation mobility cervical deep flexors strengthening scap strengthening T,W,Y
--- NOTE | 2019-07-13 15:15 | PT.OTN ---
Current Diagnoses Pain in left shoulder (07/13/19) Cervicalgia (07/13/19) Strain of unspecified muscles, fascia and tendons at forearm level, unspecified arm, initial encounter (07/13/19) Physical Therapy Treatment Note PT-OP-A Visit Information Start: 06/20/19 12:46 Freq: Status: Active Protocol: Document 07/13/19 14:35 HH (Rec: 07/13/19 15:15 [id number]) Out-Patient Physical Therapy Visit Information Visit Information Visit Type Treatment Note Visit Start Time 14:45 Visit Stop Time 15:30 Total Visit Minutes 40 Visit Number 6 Number of BACON STRINGER Visits 0 PT-OP-B Current Condition Start: 06/20/19 12:46 Freq: Status: Active Protocol: Document 06/20/19 13:00 HH (Rec: 06/20/19 14:20 [email or web address]) Current Condition History of Current Condition Onset Date 10 years ago Current Complaints Chronic L neck pain, L shoulder pain and tension headache on L side History of Current Condition Pt is a 58 yo male with primary c/o chronic L neck pain, L shoulder pain and tension headache on L side for 10 years. He describes the neck pain as a spasm that starts in the trapezius and goes up, the pain ragnes nothing to 4-6/10. His tension headache starts from L suboccipital area up to his back of L eye. Pt has had CT scan with -ve findings except trapezius strain. His symptoms tend to get worse over work/ stress and keeping his head at one position (eg. staring at his computer on his L side for long period of work). His pain also significantly affects his sleep which wakes him >3times from a 8-9 hrs sleep. He stated his symptoms tend to better with ex such as chest fly from the gym. Receiving massage from his tends to relieve his symptoms temporarily but doesnt last. Pt was prescribed with Barclofen (once a day before sleep) since last summer 2018 and it has been helpful to improve his sleep quality. Pt never had Pt before to address this problem . 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 Prior Treatments and Tests CT scan with -ve findings except trapezius strain Treatment Goals Patient/Caregiver Goals 1. To be pain free of his L shoulder and neck for daily activities 2. to be able to sleep full 8 hrs without barclofen Prior Functional Status Baseline Function- ADL's Independent Baseline Function- Mobility Independent Current Functional Impairments (Reported) Functional Limitations- Work/School Increased neck and shoulder discomfort during work. ( unabel to tolerate prolonged sitting and stare at his screen on L side) PT-OP-C Subjective Start: 06/20/19 12:46 Freq: Status: Active Protocol: Document 07/13/19 14:35 HH (Rec: 07/13/19 15:15 HH [id number]) OP-PT Subjective Patient Comments Patient Comments I got a cold since last weekend and i had a bad migraine and neck discomfort that i had to take barclofen and migraine medication. Im getting better. Patient Reported Progress Worse PT-OP-E Functional Tests Start: 06/20/19 12:46 Freq: Status: Active Protocol: Document 06/20/19 13:00 HH (Rec: 06/20/19 14:20 HH [email or web address]) Functional Tests Apley's Scratch Test Action 2- Left T2 Action 2- Right T4 Action 3- Left T8 Action 3- Right T8 PT-OP-F Manual Assessment Start: 06/20/19 12:46 Freq: Status: Active Protocol: Document 06/20/19 13:00 HH (Rec: 06/20/19 14:20 HH [email or web address]) Manual Assessments Soft Tissue Assessment Soft Tissue Mobility Assessment Significant tenderness to pressure at L infraspinatus, levator scap, L trap Joint Mobility Assessment Joint Mobility Assessment Hypomobility from T1-T6 with significant pain to PA pressure Pressure at T1-T4 produced radiating pain L trap PT-OP-J Posture/Palpation/Skin Start: 06/20/19 12:46 Freq: Status: Active Protocol: Document 06/20/19 13:00 HH (Rec: 06/20/19 14:20 HH [email or web address]) Posture Evaluation Position Standing Head/C-Spine Posture Forward Head T-Spine Posture Increased Kyphosis Shoulder Posture (L) Rounded,(R) Rounded PT-OP-K Range of Motion Start: 06/20/19 12:46 Freq: Status: Active Protocol: Document 06/20/19 13:00 HH (Rec: 06/20/19 14:20 HH [email or web address]) Cervical Spine Range of Motion Cervical Spine Active Degrees Testing Position Sitting Flexion 55 Extension 45 Rotation Left 55 Rotation Right 50 Lateral Flexion Left 35 Lateral Flexion Right 55 ROM Limitations Soft Tissue Tightness,Pain Comments pulling pain with R SB with OP pain with end range ext with OP Shoulder Goniometric Range of Motion Shoulder Right Active Shoulder ROM WFL Yes Testing Position Standing Left Active Shoulder ROM WFL Yes Testing Position Standing Shoulder ROM Limitations Shoulder ROM Limitations Pain Comments Discomfort noted at anterior aspect of L GH during end range L ER PT-OP-L Special Tests Start: 06/20/19 12:46 Freq: Status: Active Protocol: Document 06/20/19 13:00 (Rec: 06/20/19 14:20 [email or web address]) Special Tests Cervical Spine Special Tests facet joint test Test Results +ve on L Comments pain with ext/ ext+ L rot Spurling's Test Test Results +ve Comments radiating pain to L trap Foraminal Compression Test Results -ve Shoulder Special Tests Belly Press Test Results -ve Jess Aurelio Impingement Test Results -ve Neer Impingement Test Results -ve AC Joint Compression Test Results -ve Empty Can Test Results -ve PT-OP-M Strength Start: 06/20/19 12:46 Freq: Status: Active Protocol: Document 06/20/19 13:00 (Rec: 06/20/19 14:20 [email or web address]) Shoulder Strength Shoulder Manual Muscle Testing Right Flexion 4+ Good+ Extension 4+ Good+ Abduction (C5) 4+ Good+ Adduction 4+ Good+ External Rotation 4+ Good+ Internal Rotation 4+ Good+ Left Flexion 4+ Good+ Extension 4+ Good+ Abduction (C5) 4+ Good+ Adduction 4+ Good+ External Rotation 4 Good Internal Rotation 4 Good PT-OP-Q Treatments Start: 06/20/19 12:46 Freq: Status: Active Protocol: Document 07/13/19 14:35 (Rec: 07/13/19 15:15 [id number]) Cardio Equipment Upper Body Ergometer (UBE) Duration (Minutes) 5 RPM 80 Other 1min alternate direction. Manual Therapy Treatment Soft Tissue Mobilization temporalis Mobilization Type Sustained Pressure,Trigger Point Release Intensity/Depth Moderate Body Position Supine trap , levator Mobilization Type Sustained Pressure,Trigger Point Release Intensity/Depth Deep Body Position Sitting suboccipital Mobilization Type Strumming,Sustained Pressure Intensity/Depth Deep Body Position Supine Joint Mobilizations T1-T6 Grade II Body Position Prone Reps/Duration 6 mins c/s distraction Grade III Body Position Supine Reps/Duration 10 secs holdx 5 PT-OP-T Assessment and Plan Start: 06/20/19 12:46 Freq: Status: Active Protocol: Document 07/13/19 14:35 HH (Rec: 07/13/19 15:15 HH [email or web address]) Physical Therapy Assessment Goals pain Impairment Pt has pain during cervical ext and ext with L rot Longterm Goal (LTG) Pt will be pain for cervical closed pack position so pt could look overhead without discomfort. LTG Duration 8 weeks ROM Impairment Pt has limited cervical ROM Short Term Goal (STG) Pt will improve his cervical AROM by 10 degrees overall STG Duration 4 weeks Longterm Goal (LTG) Pt will improve his cervical AROM by 15 degrees overall so pt could look at his screen on the side / checking cars without any trunk compensation . LTG Duration 8 weeks Sleep Impairment pt unable to maintain 8 hrs sleep without barclofen d/t pain Short Term Goal (STG) Pt will be able to sleep >5 hours without disruption by pain and taking barclofen. STG Duration 4 weeks Longterm Goal (LTG) Pt will be able to sleep >8 hours without disruption by pain and taking barclofen. LTG Duration 8 weeks Quick dash Impairment pt scores 27.27 on quick dash Short Term Goal (STG) Pt will score <20 (1-19 % impairment) on quick dash to improve his quality of life STG Duration 4 weeks Longterm Goal (LTG) Pt will score <10 (1-19 % impairment) on quick dash to improve his quality of life so he could work a 8 hr day without discomfort. LTG Duration 8 weeks Assessment Summary Assessment Pt is recovering from his recent cold. Tx focus primarily on manual therapy. Cont to noticed reduced pain for PA mob at T/S. Disc with pt regarding sleep study due to his chronic sleep issue, sleep apnea, low energy level. Physical Therapy Plan Next Visit Focus/Plan Next Note Type Treatment Note Next Visit Plan Cervical rot and ext at end range T/S extension and rotation mobility cervical deep flexors strengthening scap strengthening T,W,Y
--- NOTE | 2019-07-25 17:30 | PT.OTN ---
Current Diagnoses Pain in left shoulder (07/25/19) Cervicalgia (07/25/19) Strain of unspecified muscles, fascia and tendons at forearm level, unspecified arm, initial encounter (07/25/19) Physical Therapy Treatment Note PT-OP-A Visit Information Start: 06/20/19 12:46 Freq: Status: Active Protocol: Document 07/25/19 16:37 HH (Rec: 07/25/19 17:30 HH [id number]) Out-Patient Physical Therapy Visit Information Visit Information Visit Type Treatment Note Visit Start Time 16:37 Visit Stop Time 17:19 Total Visit Minutes 47 Visit Number 7 Number of SERVICE CENTER SUPERVISOR Visits 0 PT-OP-B Current Condition Start: 06/20/19 12:46 Freq: Status: Active Protocol: Document 06/20/19 13:00 HH (Rec: 06/20/19 14:20 HH [email or web address]) Current Condition History of Current Condition Onset Date 10 years ago Current Complaints Chronic L neck pain, L shoulder pain and tension headache on L side History of Current Condition Pt is a 58 yo male with primary c/o chronic L neck pain, L shoulder pain and tension headache on L side for 10 years. He describes the neck pain as a spasm that starts in the trapezius and goes up, the pain ragnes nothing to 4-6/10. His tension headache starts from L suboccipital area up to his back of L eye. Pt has had CT scan with -ve findings except trapezius strain. His symptoms tend to get worse over work/ stress and keeping his head at one position (eg. staring at his computer on his L side for long period of work). His pain also significantly affects his sleep which wakes him >3times from a 8-9 hrs sleep. He stated his symptoms tend to better with ex such as chest fly from the gym. Receiving massage from his tends to relieve his symptoms temporarily but doesnt last. Pt was prescribed with Barclofen (once a day before sleep) since last summer 2018 and it has been helpful to improve his sleep quality. Pt never had Pt before to address this problem . 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 Prior Treatments and Tests CT scan with -ve findings except trapezius strain Treatment Goals Patient/Caregiver Goals 1. To be pain free of his L shoulder and neck for daily activities 2. to be able to sleep full 8 hrs without barclofen Prior Functional Status Baseline Function- ADL's Independent Baseline Function- Mobility Independent Current Functional Impairments (Reported) Functional Limitations- Work/School Increased neck and shoulder discomfort during work. ( unabel to tolerate prolonged sitting and stare at his screen on L side) PT-OP-C Subjective Start: 06/20/19 12:46 Freq: Status: Active Protocol: Document 07/25/19 16:37 HH (Rec: 07/25/19 17:30 HH [id number]) OP-PT Subjective Patient Comments Patient Comments Im recovered from the cold now and everything starts getting back to normal. Staying in one position seems bothering the most. And kristyn been doing my ex and it helps. I also havent had any tension headache. Patient Reported Progress Worse PT-OP-E Functional Tests Start: 06/20/19 12:46 Freq: Status: Active Protocol: Document 06/20/19 13:00 HH (Rec: 06/20/19 14:20 HH [email or web address]) Functional Tests Apley's Scratch Test Action 2- Left T2 Action 2- Right T4 Action 3- Left T8 Action 3- Right T8 PT-OP-F Manual Assessment Start: 06/20/19 12:46 Freq: Status: Active Protocol: Document 06/20/19 13:00 HH (Rec: 06/20/19 14:20 HH [email or web address]) Manual Assessments Soft Tissue Assessment Soft Tissue Mobility Assessment Significant tenderness to pressure at L infraspinatus, levator scap, L trap Joint Mobility Assessment Joint Mobility Assessment Hypomobility from T1-T6 with significant pain to PA pressure Pressure at T1-T4 produced radiating pain L trap PT-OP-J Posture/Palpation/Skin Start: 06/20/19 12:46 Freq: Status: Active Protocol: Document 06/20/19 13:00 HH (Rec: 06/20/19 14:20 HH [email or web address]) Posture Evaluation Position Standing Head/C-Spine Posture Forward Head T-Spine Posture Increased Kyphosis Shoulder Posture (L) Rounded,(R) Rounded PT-OP-K Range of Motion Start: 06/20/19 12:46 Freq: Status: Active Protocol: Document 06/20/19 13:00 HH (Rec: 06/20/19 14:20 HH [email or web address]) Cervical Spine Range of Motion Cervical Spine Active Degrees Testing Position Sitting Flexion 55 Extension 45 Rotation Left 55 Rotation Right 50 Lateral Flexion Left 35 Lateral Flexion Right 55 ROM Limitations Soft Tissue Tightness,Pain Comments pulling pain with R SB with OP pain with end range ext with OP Shoulder Goniometric Range of Motion Shoulder Right Active Shoulder ROM WFL Yes Testing Position Standing Left Active Shoulder ROM WFL Yes Testing Position Standing Shoulder ROM Limitations Shoulder ROM Limitations Pain Comments Discomfort noted at anterior aspect of L GH during end range L ER PT-OP-L Special Tests Start: 06/20/19 12:46 Freq: Status: Active Protocol: Document 06/20/19 13:00 (Rec: 06/20/19 14:20 [email or web address]) Special Tests Cervical Spine Special Tests facet joint test Test Results +ve on L Comments pain with ext/ ext+ L rot Spurling's Test Test Results +ve Comments radiating pain to L trap Foraminal Compression Test Results -ve Shoulder Special Tests Belly Press Test Results -ve Mercado Aurelio Impingement Test Results -ve Neer Impingement Test Results -ve AC Joint Compression Test Results -ve Empty Can Test Results -ve PT-OP-M Strength Start: 06/20/19 12:46 Freq: Status: Active Protocol: Document 06/20/19 13:00 (Rec: 06/20/19 14:20 [email or web address]) Shoulder Strength Shoulder Manual Muscle Testing Right Flexion 4+ Good+ Extension 4+ Good+ Abduction (C5) 4+ Good+ Adduction 4+ Good+ External Rotation 4+ Good+ Internal Rotation 4+ Good+ Left Flexion 4+ Good+ Extension 4+ Good+ Abduction (C5) 4+ Good+ Adduction 4+ Good+ External Rotation 4 Good Internal Rotation 4 Good PT-OP-Q Treatments Start: 06/20/19 12:46 Freq: Status: Active Protocol: Document 07/25/19 16:37 (Rec: 07/25/19 17:30 [id number]) Cardio Equipment Upper Body Ergometer (UBE) Duration (Minutes) 5 RPM 80 Other 1min alternate direction. Therapeutic Exercises Sitting Exercises suboccipital stretch Sitting Exercise Name with c/s flexion and rotation Side bilateral Reps/Minutes 6 mins OA mob Sitting Exercise Name forward head <> chin tuck Side bilateral Reps/Minutes 2 mins Manual Therapy Treatment Soft Tissue Mobilization trap , levator Mobilization Type Sustained Pressure,Trigger Point Release Intensity/Depth Deep Body Position Sitting infraspinatus Body Location L Mobilization Type Sustained Pressure,Trigger Point Release Intensity/Depth Moderate Body Position Standing Joint Mobilizations rotational mob Joint c1-C2 Direction rot to L Grade III Body Position Supine Reps/Duration 4 mins Comments with cervical rot to L AP mob Joint C1-C2 Direction AP Grade III Body Position Supine Reps/Duration 4 mins T1-T6 Grade II Body Position Prone Reps/Duration 6 mins c/s distraction Grade III Body Position Supine Reps/Duration 10 secs holdx 5 PT-OP-T Assessment and Plan Start: 06/20/19 12:46 Freq: Status: Active Protocol: Document 07/25/19 16:37 HH (Rec: 07/25/19 17:30 HH [id number]) Physical Therapy Assessment Goals pain Impairment Pt has pain during cervical ext and ext with L rot Advertising Teacher Goal (LTG) Pt will be pain for cervical closed pack position so pt could look overhead without discomfort. 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 LTG Duration 8 weeks Sleep Impairment pt unable to maintain 8 hrs sleep without barclofen d/t pain Short Term Goal (STG) Pt will be able to sleep >5 hours without disruption by pain and taking barclofen. STG Duration 4 weeks [facility] Goal (LTG) Pt will be able to sleep >8 hours without disruption by pain and taking barclofen. LTG Duration 8 weeks Quick dash Impairment pt scores 27.27 on quick dash Short Term Goal (STG) Pt will score <20 (1-19 % impairment) on quick dash to improve his quality of life STG Duration 4 weeks Advertising Teacher Goal (LTG) Pt will score <10 (1-19 % impairment) on quick dash to improve his quality of life so he could work a 8 hr day without discomfort. LTG Duration 8 weeks Assessment Summary Assessment Pt yuko tx very well without discomfort. Pain free for overpressure at end range for all cervical movements. However, pt still has restriction at OA mobility during L C/S rotation, along with tenderness at L suboccipital. Explained FHP increases pressure at suboccipitals. Physical Therapy Plan Next Visit Focus/Plan Next Note Type Treatment Note Next Visit Plan OA mob at L cervical rotation T/S extension and rotation mobility cervical deep flexors strengthening scap strengthening T,W,Y
--- NOTE | 2019-11-21 08:33 | PT.OPDS ---
Current Diagnoses Pain in left shoulder (07/25/19) Cervicalgia (07/25/19) Strain of unspecified muscles, fascia and tendons at forearm level, unspecified arm, initial encounter (07/25/19) Visit Care Team Role Provider Type Huber Agrawal DO Family Provider Physician Primary Care Provider Specialty: Family Practice Address: [address] [place] [address] Email: Rachel Garcia MD Attending Provider Non-Staff Specialty: Internal Medicine Address: [address] [place], [place] [id number] Email: Visit Number Visit Number 7 Discharge Summary PT-OP-B Current Condition Start: 06/20/19 12:46 Freq: Status: Active Protocol: Document 06/20/19 13:00 (Rec: 06/20/19 14:20 [email or web address]) Current Condition History of Current Condition Onset Date 10 years ago Current Complaints Chronic L neck pain, L shoulder pain and tension headache on L side History of Current Condition Pt is a 58 yo male with primary c/o chronic L neck pain, L shoulder pain and tension headache on L side for 10 years. He describes the neck pain as a spasm that starts in the trapezius and goes up, the pain ragnes nothing to 4-6/10. His tension headache starts from L suboccipital area up to his back of L eye. Pt has had CT scan with -ve findings except trapezius strain. His symptoms tend to get worse over work/ stress and keeping his head at one position (eg. staring at his computer on his L side for long period of work). His pain also significantly affects his sleep which wakes him >3times from a 8-9 hrs sleep. He stated his symptoms tend to better with ex such as chest fly from the gym. Receiving massage from his tends to relieve his symptoms temporarily but doesnt last. Pt was prescribed with Barclofen (once a day before sleep) since last summer 2018 and it has been helpful to improve his sleep quality. Pt never had Pt before to address this problem . 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 Prior Treatments and Tests CT scan with -ve findings except trapezius strain Treatment Goals Patient/Caregiver Goals 1. To be pain free of his L shoulder and neck for daily activities 2. to be able to sleep full 8 hrs without barclofen Prior Functional Status Baseline Function- ADL's Independent Baseline Function- Mobility Independent Current Functional Impairments (Reported) Functional Limitations- Work/School Increased neck and shoulder discomfort during work. ( unabel to tolerate prolonged sitting and stare at his screen on L side) PT-OP-C Subjective Start: 06/20/19 12:46 Freq: Status: Active Protocol: Document 07/25/19 16:37 HH (Rec: 07/25/19 17:30 HH [id number]) OP-PT Subjective Patient Comments Patient Comments Im recovered from the cold now and everything starts getting back to normal. Staying in one position seems bothering the most. And kristyn been doing my ex and it helps. I also havent had any tension headache. Patient Reported Progress Worse PT-OP-E Functional Tests Start: 06/20/19 12:46 Freq: Status: Active Protocol: Document 06/20/19 13:00 HH (Rec: 06/20/19 14:20 [email or web address]) Functional Tests Apley's Scratch Test Action 2- Left T2 Action 2- Right T4 Action 3- Left T8 Action 3- Right T8 PT-OP-F Manual Assessment Start: 06/20/19 12:46 Freq: Status: Active Protocol: Document 06/20/19 13:00 HH (Rec: 06/20/19 14:20 HH [email or web address]) Manual Assessments Soft Tissue Assessment Soft Tissue Mobility Assessment Significant tenderness to pressure at L infraspinatus, levator scap, L trap Joint Mobility Assessment Joint Mobility Assessment Hypomobility from T1-T6 with significant pain to PA pressure Pressure at T1-T4 produced radiating pain L trap PT-OP-J Posture/Palpation/Skin Start: 06/20/19 12:46 Freq: Status: Active Protocol: Document 06/20/19 13:00 HH (Rec: 06/20/19 14:20 HH [email or web address]) Posture Evaluation Position Standing Head/C-Spine Posture Forward Head T-Spine Posture Increased Kyphosis Shoulder Posture (L) Rounded,(R) Rounded PT-OP-K Range of Motion Start: 06/20/19 12:46 Freq: Status: Active Protocol: Document 06/20/19 13:00 HH (Rec: 06/20/19 14:20 [email or web address]) Cervical Spine Range of Motion Cervical Spine Active Degrees Testing Position Sitting Flexion 55 Extension 45 Rotation Left 55 Rotation Right 50 Lateral Flexion Left 35 Lateral Flexion Right 55 ROM Limitations Soft Tissue Tightness,Pain Comments pulling pain with R SB with OP pain with end range ext with OP Shoulder Goniometric Range of Motion Shoulder Right Active Shoulder ROM WFL Yes Testing Position Standing Left Active Shoulder ROM WFL Yes Testing Position Standing Shoulder ROM Limitations Shoulder ROM Limitations Pain Comments Discomfort noted at anterior aspect of L GH during end range L ER PT-OP-L Special Tests Start: 06/20/19 12:46 Freq: Status: Active Protocol: Document 06/20/19 13:00 (Rec: 06/20/19 14:20 [email or web address]) Special Tests Cervical Spine Special Tests facet joint test Test Results +ve on L Comments pain with ext/ ext+ L rot Spurling's Test Test Results +ve Comments radiating pain to L trap Foraminal Compression Test Results -ve Shoulder Special Tests Belly Press Test Results -ve Mercado Aurelio Impingement Test Results -ve Neer Impingement Test Results -ve AC Joint Compression Test Results -ve Empty Can Test Results -ve PT-OP-M Strength Start: 06/20/19 12:46 Freq: Status: Active Protocol: Document 06/20/19 13:00 (Rec: 06/20/19 14:20 [email or web address]) Shoulder Strength Shoulder Manual Muscle Testing Right Flexion 4+ Good+ Extension 4+ Good+ Abduction (C5) 4+ Good+ Adduction 4+ Good+ External Rotation 4+ Good+ Internal Rotation 4+ Good+ Left Flexion 4+ Good+ Extension 4+ Good+ Abduction (C5) 4+ Good+ Adduction 4+ Good+ External Rotation 4 Good Internal Rotation 4 Good PT-OP-T Assessment and Plan Start: 06/20/19 12:46 Freq: Status: Active Protocol: Document 11/21/19 08:31 (Rec: 11/21/19 08:33 [id number]) Physical Therapy Plan Discharge Physical Therapy Discharge Comments Attemped to reach pt multiple times via phone but unsuccessful. Per visit notes, pt has been showing improvements in symptoms, ROM and functional mobility who reached most of rehab goals. D /c from therapy today.
== END 2019-11-28 12:14 ==
LOC: PHYS 16:30
PROVIDERS: Family Provider Family Medicine; PCP Family Medicine; Visit Provider Hospitalist
DX: M25.512 Pain in left shoulder (principal); M54.2 Cervicalgia; S56.919A Strain of unspecified muscles, fascia and tendons at forearm level, unspecified arm, initial encounter
CPT/HCPCS: 97110; 97140; 97161; 97535

== ENCOUNTER → 2022-11-16 14:47 | Outpatient (CLI) | payer BC, SELFPAY ==
[2022-11-16 15:54] LABS: Add Manual Diff / Slide Review NO; Basophils Absolute Auto 0 /uL (0-100); Basophils Percent Auto 0.4 % (0-2); Eosinophils Absolute Auto 400 /uL (0-450); Eosinophils Percent Auto 6.1 % (2-4); Hematocrit 40.6 % (41-53); Hemoglobin 14.4 g/dL (13.5-17.5); Lymphocytes Absolute Auto 1700 /uL (1100-4500); Lymphocytes Percent Auto 27.3 % (25-40); Mean Corpuscular HGB Conc 35.4 % (30-36); Mean Corpuscular Hemoglobin 31.1 PG (26-34); Mean Corpuscular Volume 87.9 fL (80-100); Monocytes Absolute Auto 500 /uL (0-900); Monocytes Percent Auto 7.2 % (3-14); Neutrophils Absolute Auto 3800 /uL (1500-7000); Platelet Count 247 X10^3/uL (150-400); Red Blood Cell Count 4.62 X10^6/uL (4.5-5.9); Red Cell Distribution Width 13.3 % (11.6-14.8); White Blood Cell Count 6.4 X10^3/uL (4.5-11.0)
[2022-11-16 16:14] LABS: Alanine Aminotransferase 25 IU/L (<50); Albumin 4.2 g/dL (3.5-5.0); Albumin Globulin Ratio 1.8 (1.0-2.8); Alkaline Phosphatase 76 U/L (38-126); Aspartate Aminotransferase 27 IU/L (17-59); Bilirubin Total 0.8 mg/dL (0.2-1.3); Blood Urea Nitrogen 15 mg/dL (9-20); Carbon Dioxide 29 mmol/L (22-32); Chloride 103 mmol/L (98-107); Cholesterol 218 mg/dL (140-199); Estimated Glomerular Filt Rate > 60 mL/min (>60); Globulin 2.3 g/dL (1.7-4.1); Glucose 89 mg/dL (80-110); HDL Cholesterol 44 mg/dL (40-60); HEMOLYSIS < 15 (0-50); LDL Cholesterol Calculated 129 mg/dL (<100); Potassium 3.9 mmol/L (3.4-5.1); Sodium 138 mmol/L (137-145); Total Protein 6.5 g/dL (6.3-8.2); Triglycerides 225 mg/dL (35-150)
[2022-11-16 16:43] LABS: TSH w/ Reflex to FT4 2.07 uIU/mL (0.47-4.68)
[2022-11-16 19:57] LABS: Hep C Virus Ab w/Reflex Quant NEGATIVE s/c (NEGATIVE)
== END ==
PROVIDERS: Family Provider Family Medicine; PCP Family Medicine; Referring Provider Family Medicine; Visit Provider Family Medicine
DX: F90.0 Attention-deficit hyperactivity disorder, predominantly inattentive type (principal); G43.909 Migraine, unspecified, not intractable, without status migrainosus; G44.209 Tension-type headache, unspecified, not intractable; M54.2 Cervicalgia
CPT/HCPCS: 36415; 80053; 80061; 84443; 85025; 86803

== ENCOUNTER → 2022-11-23 09:46 | Outpatient (CLI) | payer BC, SELFPAY ==
--- NOTE | 2022-11-23 09:47 | DI.NM.S_ITS ---
PROCEDURE: NM CHRIST PERF SPECT REST & STR Rest and exercise myocardial perfusion SPECT with gated imaging and ejection fraction RADIOPHARMACEUTICAL: 11.6 mCi Tc-99m sestamibi IV at rest and 26.4 mCi Tc-99m sestamibi IV at peak exercise. A one day-protocol was performed. INDICATIONS: atypical chest pain, significant fam hx of early cardiac dx TECHNIQUE: Radiopharmaceutical was injected at peak stress test, and also at rest. SPECT images were obtained. SPECT myocardial perfusion images were displayed in short axis, horizontal long axis, and vertical long axis views. Gated images were reviewed using [employer] software. COMPARISON: None. CARDIAC STRESS: A standard Mart treadmill exercise tolerance test was performed by the patient under the supervision of an attending staff. The patient exercised for 8 minutes and 15 seconds; functional aerobic impairment (CATRACHO) is 0%. Hemodynamic data: There is normal heart rate response to exercise stress. Hypertensive response to exercise (resting BP 116/60mmHg, max BP 220/80mmHg). Patient achieved 91% of maximum predicted heart rate at peak exercise. Symptoms: Patient denied chest pain during exercise. EKG: No diagnostic EKG changes of ischemia; no ectopy. FINDINGS: Raw data: There is good myocardial labeling by radiotracer. No significant motion artifacts. Qhgu-[id number] ratio is 0.32 (normal is less than 0.38 for sestamibi tracer, and less than 0.50 for thallium tracer). Left ventricle function: Gated images demonstrate normal left ventricle wall thickening. No segmental wall motion abnormality. No transient ischemic dilation; TID is 0.61 (normal less than 1.3). The left ventricle resting end-diastolic volume is 101mL. Left ventricle stress ejection fraction is normal; normal values are above 45%. Myocardial perfusion: There is normal distribution of activity in the left and right ventricular myocardium. No fixed or reversible perfusion defects. IMPRESSION: Low risk, normal treadmill nuclear stress test 1) No perfusion evidence of ischemia or infarction. 2) Normal left ventricular size, wall motion, and systolic function (EF post stress 70%). 3) No ST changes during exercises or recovery. 4) No angina during the study. 5) Average exercise capacity (CATRACHO 0%). Target heart rate achieved. 6) Hypertensive response to exercise (resting BP 116/60mmHg, max BP 220/80mmHg). 7) No prior nuclear stress test available for comparison. Dictated by: Jose Alberto Gonzales MD on 11/24/2022 at 14:21 Approved by: Jose Alberto Gonzales MD on 11/24/2022 at 14:24
--- NOTE | 2022-11-23 14:22 | PM.TREADMILL ---
Cardiac Stress Test Report Referral & Results Date Patient Seen: 11/23/22 Indication: Atypical chest pain Rest ECG: Unremarkable Procedure Note: Today following both written and verbal informed consent the patient was exercised according to a standard Mart protocol patient went for a total of 8 minutes 15 seconds achieving a maximum heart rate of 146 maximum systolic blood pressure of 220. This is approximately 10.1 METS. Exercise was terminated at this point because of targets were met. Patient was also given Cardiolite through a previously started Hep-Lock IV by the diagnostic imaging staff approximately 1 minute prior to the cessation of exercise. There were no ST-T segment changes Normal heart rate and blood pressure response to exercise although perhaps just a bit hypertensive overall in response at peak. Function aerobic impairment rates 0 on the sedentary scale Impression: No evidence of ischemia based on usual ECG criteria. Average exercise capacity. Please see perfusion imaging report as well Please note: Actual ECG tracings can be found in the PACS system.
== END ==
PROVIDERS: Family Provider Family Medicine; PCP Family Medicine; Referring Provider Family Medicine; Visit Provider Family Medicine
DX: G43.909 Migraine, unspecified, not intractable, without status migrainosus (principal); R07.89 Other chest pain; K63.5 Polyp of colon; F90.0 Attention-deficit hyperactivity disorder, predominantly inattentive type
CPT/HCPCS: 78452; 93016; 93017; 93018; A9502

== ENCOUNTER 2023-06-20 07:51 | Emergency (ER) | payer BC, SELFPAY ==
[2023-06-20 08:00] VITALS: BP 121/78; PULSE 71; RESP 16; TEMP 36.4; O2SAT 97; BMI 32.1
--- NOTE | 2023-06-20 08:09 | ED.GENADULT ---
HPI - General Adult General Chief complaint: Eye Problems Stated complaint: L eye vision problems Time Seen by Provider: 06/20/23 07:56 Source: patient Mode of arrival: Ambulatory Limitations: no limitations History of Present Illness HPI narrative: Patient is a 62-year-old otherwise healthy male who is here for evaluation of flashes and floaters to his left eye. He states that approximately 730 last evening he was at dinner. He stated that he noted some bright flashing lights in his very far left peripheral vision. He stated that they were intermittent. He could see them when he was looking straight ahead and when he was looking to the left. He did not feel that he was seeing anything in his right eye. When the symptoms were present it was a very short period of time and then they resolved. He states he has some very slight pressure behind his left eye otherwise no other symptoms. This morning he states that he now seeing some dark spots and wavy lines. These are now more persistent. Again are in his left visual field of his left eye. Has never had surgery on his eyes. No history of glaucoma. Wears reading glasses but no other corrective lenses. No history of headaches. Does have some sinus congestion but no sore throat. No ear pain. No numbness or tingling in his upper and lower extremities. No pain in his eye. Related Data Previous Rx's Medication Instructions Recorded amoxicillin 875 mg tablet 875 mg PO BID #20 tabs 06/15/23 Allergies Allergy/AdvReac Type Severity Reaction Status Date / Time No Known Drug Allergies Allergy Verified 06/15/23 15:28 Review of Systems Constitutional Constitutional: Reports system reviewed and no additional complaints, except as documented Eyes Eyes: Reports system reviewed and no additional complaints, except as documented ENT Ears, Nose, Mouth, and Throat: Reports system reviewed and no additional complaints, except as documented Integumentary/Breasts Skin/Breast: Reports system reviewed and no additional complaints, except as documented Neurologic Neurologic: Reports system reviewed and no additional complaints, except as documented Hematologic/Lymphatic On Anticoagulants: No Patient History Medical History Hyperlipidemia ADHD (attention deficit hyperactivity disorder), inattentive type Segmental and somatic dysfunction of abdomen and other regions Cervical somatic dysfunction Upper extremity somatic dysfunction Tension headache Chronic left shoulder pain Migraine (~1998) Shoulder pain (~1999) Hearing loss (~1989) Kidney stones (~2012) Colon polyp (~2018) Surgical History Thumb fracture (~1980) Family History Father Heart disease Grandfather Heart disease Grandfather Cancer Social History marital status: number of children: 7 household members: spouse pets and animals: Yes (Dog/cat) education level: college occupational status: employed leisure activities: fishing other: Running, flying, boating. seatbelt use: always helmet use: Yes water heater temp set < 120 deg: Yes working smoke detector in home: Yes fire extinguisher in home: Yes carbon monox detector in home: Yes do you feel safe at home: Yes Smoking Status: Never smoker alcohol intake: never substance use type: does not use during the past year weight has: remained stable well-balanced diet: daily or most days daily servings fruits/ve-4 caffeine: Yes (1-3 soda per week/rare) eating out: 1-3 times/week Type(s) of exercise: weight lifting and running frequency: 3-4 times per week additional social history: Rowing. Smoking Status: Never smoker Exam Initial Vital Signs Initial Vital Signs: Vital Signs Temperature 97.5 F L 06/20/23 08:00 Pulse Rate 71 06/20/23 08:00 Respiratory Rate 16 06/20/23 08:00 Blood Pressure 121/78 06/20/23 08:00 Pulse Oximetry 97 06/20/23 08:00 Oxygen Delivery Method Room Air 06/20/23 08:00 Const General: cooperative, comfortable and No ill appearing HENMT Head: normal to inspection and normocephalic Ears: TM's normal bilaterally Face and sinus: normal facial exam Mouth: oral mucosae normal Eyes General: Yes appearance normal, both eyes and all related structures Periorbital: periorbital findings normal Eyelids: eyelids normal Conjunctivae: conjunctivae normal Pupils: PERRL EOM: EOM intact bilaterally Other: Intra-ocular pressure left eye 20, intraocular pressure right eye 21, OS 20 40, OD 20 50, OU 20 40 Neuro General: patient alert, patient awake, patient oriented x3 and moves all extremities Cranial Nerves: CN's II-XI intact bilaterally, PERRL and tongue midline Cognition: normal cognition Speech: speech normal Gait: normal gait Sensory Exam: no sensory deficits noted Extrem General: normal to inspection and capillary refill normal Course Orders Ordered: ED Orders 06/20/23 08:08 CT head/brain wo con Stat Discontinued Medications Proparacaine HCl (Proparacaine 0.5% Ophth Jayashree) 1 drops EYE-LEFT NOW ONE Stop: 06/20/23 08:09 Last Admin: 06/20/23 08:13 Dose: 1 drop Vital Signs Vital signs: Vital Signs - 8 hr 06/20/23 08:00 Temperature 97.5 F L Pulse Rate 71 Respiratory Rate 16 Blood Pressure 121/78 Pulse Oximetry 97 Oxygen Delivery Method Room Air Medical Decision Making Imaging Data CT scan - head: Radiologist's Impression: PROCEDURE: CT HEAD/BRAIN WO CON INDICATIONS: L sided vision problems TECHNIQUE: Noncontrast 4.5 mm thick angled axial sections acquired from the foramen magnum to the vertex, with coronal and sagittal reformats. For radiation dose reduction, the following was used: automated exposure control, adjustment of mA and/or kV according to patient size. COMPARISON: None. FINDINGS: Image quality: Diagnostic. CSF spaces: Basal cisterns are patent. No extra-axial fluid collections. Ventricles are normal in size and shape. Brain: No midline shift. No intracranial masses or hemorrhage. Brito-white matter interface is normal. Skull and face: Calvarium and visualized facial bones are intact, without suspicious lesions. Sinuses: Visualized sinuses and mastoids are clear. IMPRESSION: No acute intracranial pathology. [facility] Narrative Medical decision making narrative: Intra-ocular pressures are unremarkable. Visual acuity is unremarkable. Low suspicion for CVA. Low suspicion for TIA. He has no tenderness over the temporal artery. Low suspicion for meningitis. Low suspicion for intracranial hemorrhage all this is based on his physical exam. Given his history which initially was flashes now more floaters it is most consistent with a vitreous detachment. Bedside ultrasound of his left eye did not show any signs of retinal detachment. Low suspicion for increased intracranial pressure. I also did not see specific findings for vitreous detachment on the ultrasound however this does not completely eliminate this is a possibility. Advised that he contact Ophthalmology tomorrow for follow-up. We did discuss specific return precautions to include vision loss. He expressed understanding and agreement with plan. Discharge Plan Departure Patient Disposition: Home Clinical Impression: Floaters in visual field Instructions: DI for Vitreous Detachment Activity Restrictions/Additional Instructions: I do recommend that when the office is open tomorrow you contact the ophthalmology department at [phone]. Let them know that you were here in the emergency department and see about a follow-up exam. If your symptoms worsen you do need to be seen more urgently in the emergency department like we discussed. Prescriptions: No Action amoxicillin 875 mg tablet 875 mg PO BID Qty: 20 0RF Referrals: Harris Iniguez MD [Primary Care Provider] - Stand Alone Forms: Patient Portal/API
[2023-06-20] MEDS: PROPARACAINE 0.5% OPHTH SOL 1 DROPS EYE-LEFT (08:13)
[2023-06-20 09:00] VITALS: BP 129/74; PULSE 69; RESP 16; O2SAT 95
== END 2023-06-20 09:00 | disposition home or self-care (01) ==
PROVIDERS: Emergency Provider Emergency Medicine; Family Provider Family Medicine; PCP Family Medicine
DX: H43.392 Other vitreous opacities, left eye (principal)
CPT/HCPCS: 70450; 99283; 99284

== ENCOUNTER → 2023-06-28 14:47 | Outpatient (CLI) | payer BC, SELFPAY ==
[2023-06-28 17:23] LABS: Alanine Aminotransferase 29 IU/L (<50); Albumin 4.2 g/dL (3.5-5.0); Albumin Globulin Ratio 1.4 (1.0-2.8); Alkaline Phosphatase 62 U/L (38-126); Aspartate Aminotransferase 31 IU/L (17-59); BUN Creatinine Ratio 21.3 (6-22); Bilirubin Total 0.8 mg/dL (0.2-1.3); Blood Urea Nitrogen 17 mg/dL (9-20); Calcium 9.2 mg/dL (8.4-10.2); Carbon Dioxide 29 mmol/L (22-32); Chloride 101 mmol/L (98-107); Cholesterol 258 mg/dL (140-199); Estimated Glomerular Filt Rate > 60 mL/min (>60); Globulin 2.9 g/dL (1.7-4.1); Glucose 76 mg/dL (80-110); HDL Cholesterol 38 mg/dL (40-60); HEMOLYSIS 19 (0-50); LDL Cholesterol Calculated 154 mg/dL (<100); Potassium 4.1 mmol/L (3.4-5.1); Sodium 138 mmol/L (137-145); Total Protein 7.1 g/dL (6.3-8.2); Triglycerides 331 mg/dL (35-150)
[2023-06-28 17:57] LABS: TSH w/ Reflex to FT4 3.02 uIU/mL (0.47-4.68)
[2023-06-28 20:37] LABS: Hematocrit 42.4 % (41-53); Hemoglobin 14.7 g/dL (13.5-17.5); Mean Corpuscular HGB Conc 34.6 % (30-36); Mean Corpuscular Volume 89.6 fL (80-100); Platelet Count 269 X10^3/uL (150-400); Red Blood Cell Count 4.73 X10^6/uL (4.5-5.9); Red Cell Distribution Width 13.2 % (11.6-14.8); White Blood Cell Count 7.2 X10^3/uL (4.5-11.0)
[2023-06-29 12:43] LABS: Hemoglobin A1C% w Est Avg Glu 5.7 % (4.0-6.0)
[2023-06-30 03:11] LABS: Apolipoprotein B 137 mg/dL (<90)
== END ==
PROVIDERS: Physician Assistant; Family Provider Family Medicine; PCP Family Medicine; Referring Provider Family Medicine; Visit Provider Family Medicine
DX: E78.5 Hyperlipidemia, unspecified (principal); E78.2 Mixed hyperlipidemia; R63.5 Abnormal weight gain
CPT/HCPCS: 36415; 80053; 80061; 82172; 83036; 84443; 85027

== ENCOUNTER → 2024-02-21 14:54 | Outpatient (CLI) | payer BC, SELFPAY ==
[2024-02-21 15:37] LABS: Cholesterol 215 mg/dL (140-199); HDL Cholesterol 45 mg/dL (40-60); LDL Cholesterol Calculated 132 mg/dL (<100); Triglycerides 189 mg/dL (35-150)
[2024-02-21 16:39] LABS: Prostate Specific Antigen Scrn 0.798 ng/mL (0.1-4.0)
== END ==
PROVIDERS: Family Provider Family Medicine; PCP Family Medicine; Referring Provider Family Medicine; Visit Provider Family Medicine
DX: E78.2 Mixed hyperlipidemia (principal); Z12.5 Encounter for screening for malignant neoplasm of prostate
CPT/HCPCS: 36415; 80061; G0103